=== PATIENT | female | born 1935 | race Caucasian/White ===

== ENCOUNTER → 2016-10-10 | Outpatient (CLI) | payer MEDICARE ==
[~2016-10-10] MED LIST: 'XANAX0.5 MG PO; AMITRIPTYLINE10 MG PO; ATIVAN0.5 MG PO; ATIVAN1 MG PO; CIPROFLOXACIN500 MG PO; DEXILANT60 M1 PO; DOXYCYCLINE MO100 MG PO; LISINOPRIL HCTZ1 TA1 PO; LISINOPRIL/HCTZ1 TA4 PO; LOPRESSOR25 MG PO; LUNESTA2 MG PO; NORTRIPTYLINE10 MG PO; OMEPRAZOLE20 MG PO; PREVACID SOLUTA30 MG PO; PROTONIX IV40 MG IV; PROTONIX TR40 MG PO; PROTONIX40 MG PO; REMERON15 MG PO; TESSALON PERLE200 MG PO; ZESTRIL,PRINIVI10 MG PO; ZITHROMAX Z PA250 MG PO; Zofran4 MG PO; [UNRECOGNIZED DRUG - REMARK] PO
[2016-10-10 09:41] LABS: BASO % 0.3 % (0.0-1.0); EOS # 0.2 10*3/uL (0.0-0.4); EOS % 1.4 % (1.0-4.0); HEMATOCRIT 40.5 % (37.0-47.0); HEMOGLOBIN 13.2 g/dl (12.0-16.0); IG # 0.1 10*3/uL (0.0-0.1); LYMPH # 2.3 10*3/uL (1.3-4.4); LYMPH % 21.5 % (27.0-41.0); MEAN CORPUSCULAR HGB 28.7 pg (27.0-31.0); MEAN CORPUSCULAR HGB CONC 32.6 g/dl (33.0-37.0); MEAN PLATELET VOLUME 8.7 fl (9.6-12.3); MONO # 0.7 10*3/uL (0.1-1.0); NEUT # 7.3 10*3/uL (2.3-7.9); NEUT % 68.9 % (47.0-73.0); PLATELET COUNT AUTOMATED 283 10*3/uL (130-400); RED CELL DISTRI WIDTH 13.5 % (0-14.5); WHITE BLOOD COUNT 10.6 10*3/uL (4.8-10.8)
[2016-10-10 10:15] LABS: ALBUMIN 3.4 gm/dl (3.1-4.5); ALKALINE PHOSPHATASE 75 U/L (45-117); BILIRUBIN, TOTAL 0.4 mg/dl (0.2-1.0); BUN 26 mg/dl (7-24); CARBON DIOXIDE 27 mmol/L (21-32); CHLORIDE 105 mmol/L (98-107); CHOLESTEROL 192 mg/dL (<200); EST GLOM FILT AFRICAN AMERICAN > 60 ml/min; GLUCOSE 87 mg/dL (65-99); HDL CHOLESTEROL 65 mg/dl (40-60); LDL CHOLESTEROL 99 mg/dL (9-159); POTASSIUM 4.2 mmol/L (3.5-5.1); SGOT/AST 13 IU/L (3-35); SGPT/ALT 19 U/L (12-78); SODIUM 140 mmol/L (136-145); TOTAL PROTEIN 7.4 gm/dL (6.4-8.2); TRIGLYCERIDES 140 mg/dl (<150); VLDL CHOLESTEROL 28 mg/dL (6-40)
[2016-10-10 10:20] LABS: THYROID STIM HORMONE (HS) 0.632 uIU/ml (0.358-4.75)
[2016-10-10 10:25] LABS: FOLIC ACID 18.84 ng/mL (>5.38)
[2016-10-11 05:07] LABS: MICRO ALBUMIN/CRE RATIO 5.4 (0.0-30.0)
== END | disposition home or self-care (01) ==
LOC: LAB 09:12
PROVIDERS: Internal Medicine
DX: I10 Essential (primary) hypertension (principal)

== ENCOUNTER → 2016-12-25 | Outpatient (CLI) | payer MEDICARE | END | disposition home or self-care (01) | LOC: US 18:15 | DX: L03.115 Cellulitis of right lower limb (principal) ==

== ENCOUNTER → 2017-03-04 | Outpatient (CLI) | payer MEDICARE | END | disposition home or self-care (01) | LOC: RAD 12:59 | DX: S24.104A Unspecified injury at T11-T12 level of thoracic spinal cord, initial encounter (principal); M47.896 Other spondylosis, lumbar region; M48.06 Spinal stenosis, lumbar region; M51.36 Other intervertebral disc degeneration, lumbar region; X58.XXXA Exposure to other specified factors, initial encounter; Y93.89 Activity, other specified; Y92.89 Other specified places as the place of occurrence of the external cause; Y99.8 Other external cause status ==

== ENCOUNTER 2017-03-09 16:50 | Emergency (ER) | payer MEDICARE ==
[~2017-03-09] VITALS: Ht 162.5 cm; Wt 86.2 kg
[2017-03-09] MEDS ORDERED: LISINOPRIL20 MG PO (17:10)
[2017-03-09 17:19] VITALS: BP 166/72
== END 2017-03-09 17:22 | disposition home or self-care (01) ==
LOC: ED 16:50
DX: I10 Essential (primary) hypertension (principal); R51 Headache; R09.81 Nasal congestion; R05 Cough; K21.9 Gastro-esophageal reflux disease without esophagitis; Z79.899 Other long term (current) drug therapy

== ENCOUNTER → 2017-12-12 | Outpatient (CLI) | payer MEDICARE ==
[~2017-12-12] MED LIST changes: +ATARAX,VISTARIL50 MG PO; +COZAAR100 MG PO; +DOXYCYCLINE100 M3 PO; +GUAIFEN-CODEIN118 ML PO; +K-TAB20 MEQ PO; +KEFLEX500 M1 PO; +LASIX40 MG PO; +LISINOPRIL20 MG PO; +Meclizine25 MG PO; +NORVASC5 MG PO; +OMEPRAZOLE40 MG PO; +SINGULAIR10 M1 PO; +VITAMIN D-32000 UNIT PO
== END | disposition home or self-care (01) ==
LOC: US 16:33
DX: M79.89 Other specified soft tissue disorders (principal)

== ENCOUNTER 2017-12-15 20:00 | Inpatient (IN) | payer MEDICARE ==
[~2017-12-15] VITALS: Ht 152.4 cm; Wt 96.2 kg
[~2017-12-15 20:00] MED LIST changes: -ATARAX,VISTARIL50 MG PO; -COZAAR100 MG PO; -DOXYCYCLINE100 M3 PO; -GUAIFEN-CODEIN118 ML PO; -K-TAB20 MEQ PO; -KEFLEX500 M1 PO; -LASIX40 MG PO; -Meclizine25 MG PO; -NORVASC5 MG PO; -OMEPRAZOLE40 MG PO; -SINGULAIR10 M1 PO; -VITAMIN D-32000 UNIT PO
[2017-12-15 20:06] VITALS: BP 156/117
[2017-12-15 20:09] VITALS: BP 170/90
[2017-12-15 20:49] LABS: BILIRUBIN NEGATIVE (NEGATIVE); BLOOD NEGATIVE (NEGATIVE); CLARITY CLEAR (CLEAR); COLOR YELLOW (YELLOW); GLUCOSE NEGATIVE (NEGATIVE); KETONE NEGATIVE (NEGATIVE); LEUKO ESTERASE NEGATIVE (NEGATIVE); NITRITE NEGATIVE (NEGATIVE); UROBILINOGEN 0.2 E.U./dl (0.2-1.0)
[2017-12-15 21:02] LABS: BACTERIA TRACE; RBC 0-2 rbc/hpf (0-2)
[2017-12-15 21:04] LABS: BASO # 0.1 10*3/uL (0.0-0.1); BASO % 0.5 % (0.0-1.0); EOS # 0.3 10*3/uL (0.0-0.4); EOS % 3.5 % (1.0-4.0); HEMATOCRIT 35.9 % (37.0-47.0); HEMOGLOBIN 11.8 g/dl (12.0-16.0); LYMPH # 2.3 10*3/uL (1.3-4.4); LYMPH % 23.6 % (27.0-41.0); MEAN CELL VOLUME 82.5 fl (81.0-99.0); MEAN CORPUSCULAR HGB 27.1 pg (27.0-31.0); MEAN CORPUSCULAR HGB CONC 32.9 g/dl (33.0-37.0); MEAN PLATELET VOLUME 8.2 fl (9.6-12.3); MONO # 0.9 10*3/uL (0.1-1.0); MONO % 9.1 % (3.0-9.0); NEUT # 6.2 10*3/uL (2.3-7.9); NEUT % 62.9 % (47.0-73.0); PLATELET COUNT AUTOMATED 367 10*3/uL (130-400); RED BLOOD COUNT 4.35 10*6/uL (4.10-5.10); RED CELL DISTRI WIDTH 12.5 % (0-14.5); WHITE BLOOD COUNT 9.8 10*3/uL (4.8-10.8)
[2017-12-15 21:18] LABS: INTERNATIONAL NORM RATIO 0.9 (2.0-3.5)
[2017-12-15 21:20] LABS: ALBUMIN 3.5 gm/dl (3.1-4.5); ALKALINE PHOSPHATASE 85 U/L (45-117); BUN 10 mg/dl (7-24); CHLORIDE 101 mmol/L (98-107); CREATININE 0.96 mg/dL (0.55-1.02); POTASSIUM 3.9 mmol/L (3.5-5.1); SGOT/AST 16 IU/L (3-35); SGPT/ALT 22 U/L (12-78); SODIUM 133 mmol/L (136-145); TOTAL PROTEIN 7.1 gm/dL (6.4-8.2)
[2017-12-15 21:21] LABS: TROPONIN I < 0.015 ng/ml (<0.045)
[2017-12-15 21:43] VITALS: BP 164/72
[2017-12-16 01:20] VITALS: BP 156/66
[2017-12-16] MEDS ORDERED: COZAAR100 MG PO (01:32)
[2017-12-16] MEDS ORDERED: NORVASC5 MG PO (01:33)
[2017-12-16] MEDS ORDERED: ATARAX,VISTARIL50 MG PO (01:33)
[2017-12-16] MEDS ORDERED: OMEPRAZOLE40 MG PO (01:33)
[2017-12-16] MEDS ORDERED: Meclizine25 MG PO (01:34)
[2017-12-16] MEDS ORDERED: SINGULAIR10 M1 PO (01:35)
[2017-12-16 06:01] LABS: BASO # 0.1 10*3/uL (0.0-0.1); BASO % 0.7 % (0.0-1.0); EOS # 0.3 10*3/uL (0.0-0.4); EOS % 3.7 % (1.0-4.0); HEMATOCRIT 33.6 % (37.0-47.0); HEMOGLOBIN 10.8 g/dl (12.0-16.0); LYMPH # 1.9 10*3/uL (1.3-4.4); LYMPH % 22.9 % (27.0-41.0); MEAN CELL VOLUME 83.6 fl (81.0-99.0); MEAN CORPUSCULAR HGB 26.9 pg (27.0-31.0); MEAN CORPUSCULAR HGB CONC 32.1 g/dl (33.0-37.0); MEAN PLATELET VOLUME 8.5 fl (9.6-12.3); MONO # 0.8 10*3/uL (0.1-1.0); MONO % 9.8 % (3.0-9.0); NEUT # 5.1 10*3/uL (2.3-7.9); NEUT % 62.5 % (47.0-73.0); PLATELET COUNT AUTOMATED 344 10*3/uL (130-400); RED BLOOD COUNT 4.02 10*6/uL (4.10-5.10); RED CELL DISTRI WIDTH 12.5 % (0-14.5); WHITE BLOOD COUNT 8.2 10*3/uL (4.8-10.8)
[2017-12-16 06:30] LABS: BUN 7 mg/dl (7-24); CHLORIDE 103 mmol/L (98-107); CHOLESTEROL 131 mg/dL (<200); CREATININE 0.81 mg/dL (0.55-1.02); HDL CHOLESTEROL 33 mg/dl (40-60); LDL CHOLESTEROL 75 mg/dL (9-159); PHOSPHOROUS 3.4 mg/dL (2.5-4.9); POTASSIUM 3.7 mmol/L (3.5-5.1); SODIUM 138 mmol/L (136-145); TRIGLYCERIDES 113 mg/dl (<150); VLDL CHOLESTEROL 23 mg/dL (6-40)
[2017-12-16 06:36] LABS: THYROID STIM HORMONE (HS) 0.392 uIU/ml (0.358-4.75)
[2017-12-16 08:00] VITALS: BP 156/68
[2017-12-16 11:21] LABS: VITAMIN D, 25-HYDROXY 25.8 ng/mL (30-100)
[2017-12-16 12:00] VITALS: BP 149/59
[2017-12-16 16:00] VITALS: BP 156/70
[2017-12-16 20:00] VITALS: BP 131/73
[2017-12-17] VITALS: BP 151/56
[2017-12-17 07:32] LABS: BASO # 0.1 10*3/uL (0.0-0.1); BASO % 0.7 % (0.0-1.0); EOS # 0.4 10*3/uL (0.0-0.4); EOS % 4.9 % (1.0-4.0); HEMATOCRIT 34.1 % (37.0-47.0); HEMOGLOBIN 11.1 g/dl (12.0-16.0); LYMPH # 1.9 10*3/uL (1.3-4.4); LYMPH % 26.6 % (27.0-41.0); MEAN CELL VOLUME 83.2 fl (81.0-99.0); MEAN CORPUSCULAR HGB 27.1 pg (27.0-31.0); MEAN CORPUSCULAR HGB CONC 32.6 g/dl (33.0-37.0); MEAN PLATELET VOLUME 8.5 fl (9.6-12.3); MONO # 0.8 10*3/uL (0.1-1.0); NEUT # 4.1 10*3/uL (2.3-7.9); NEUT % 56.4 % (47.0-73.0); PLATELET COUNT AUTOMATED 332 10*3/uL (130-400); RED CELL DISTRI WIDTH 12.7 % (0-14.5); WHITE BLOOD COUNT 7.2 10*3/uL (4.8-10.8)
[2017-12-17 07:43] LABS: BUN 8 mg/dl (7-24); CHLORIDE 106 mmol/L (98-107); POTASSIUM 3.8 mmol/L (3.5-5.1); SODIUM 141 mmol/L (136-145)
[2017-12-17 07:52] LABS: CREATININE 1.01 mg/dL (0.55-1.02)
[2017-12-17 08:00] VITALS: BP 146/63
[2017-12-17 11:59] VITALS: BP 151/79
[2017-12-17 16:00] VITALS: BP 134/70
[2017-12-17 20:00] VITALS: BP 108/61
[2017-12-18] VITALS: BP 146/51
[2017-12-18 04:00] LABS: CREATININE 1.33 mg/dL (0.55-1.02); POTASSIUM 3.4 mmol/L (3.5-5.1)
[2017-12-18 08:00] VITALS: BP 139/62
[2017-12-18 12:00] VITALS: BP 132/57
[2017-12-18 16:06] VITALS: BP 11/54
[2017-12-18 18:00] VITALS: BP 146/62
[2017-12-18 20:00] VITALS: BP 135/59
[2017-12-19] VITALS: BP 150/54; BP 156/55
[2017-12-19 08:00] VITALS: BP 136/50
[2017-12-19 08:29] LABS: CREATININE 1.24 mg/dL (0.55-1.02)
[2017-12-19] MEDS ORDERED: LASIX40 MG PO (11:55)
[2017-12-19] MEDS ORDERED: KEFLEX500 M1 PO (11:55)
[2017-12-19] MEDS ORDERED: VITAMIN D-32000 UNIT PO (11:55)
[2017-12-19] MEDS ORDERED: K-TAB20 MEQ PO (11:55)
[2017-12-19 12:00] VITALS: BP 140/84
[2017-12-19] MEDS ORDERED: GUAIFEN-CODEIN118 ML PO (12:09)
[2017-12-19] MEDS ORDERED: DOXYCYCLINE100 M3 PO (13:38)
== END 2017-12-19 14:36 | disposition home or self-care (01) | DRG 872 ==
LOC: ED 20:00 → 4E 12-16 00:22 → EDHOLD 12-16 00:22 → 4E 12-16 01:04
PROVIDERS: Emergency Medicine; Family Medicine; Internal Medicine Nephrology
DX: A41.9 Sepsis, unspecified organism (principal); E11.65 Type 2 diabetes mellitus with hyperglycemia; I50.9 Heart failure, unspecified; I11.0 Hypertensive heart disease with heart failure; L03.115 Cellulitis of right lower limb; E87.1 Hypo-osmolality and hyponatremia; L03.116 Cellulitis of left lower limb; E66.01 Morbid (severe) obesity due to excess calories; D64.9 Anemia, unspecified; K21.9 Gastro-esophageal reflux disease without esophagitis; K22.70 Barrett's esophagus without dysplasia; Z96.1 Presence of intraocular lens; M19.90 Unspecified osteoarthritis, unspecified site; R79.82 Elevated C-reactive protein (CRP); E55.9 Vitamin D deficiency, unspecified; Z79.899 Other long term (current) drug therapy; Z87.01 Personal history of pneumonia (recurrent); Z87.440 Personal history of urinary (tract) infections; Z90.49 Acquired absence of other specified parts of digestive tract; Z98.51 Tubal ligation status; Z98.49 Cataract extraction status, unspecified eye; Z87.891 Personal history of nicotine dependence; Z83.3 Family history of diabetes mellitus; Z82.49 Family history of ischemic heart disease and other diseases of the circulatory system; Z80.8 Family history of malignant neoplasm of other organs or systems; Z82.0 Family history of epilepsy and other diseases of the nervous system; Z68.39 Body mass index [BMI] 39.0-39.9, adult

== ENCOUNTER → 2017-12-31 | Outpatient (CLI) | payer MEDICARE ==
[~2017-12-31] MED LIST changes: +ATARAX,VISTARIL50 MG PO; +COZAAR100 MG PO; +DOXYCYCLINE100 M3 PO; +GUAIFEN-CODEIN118 ML PO; +K-TAB20 MEQ PO; +KEFLEX500 M1 PO; +LASIX40 MG PO; +Meclizine25 MG PO; +NORVASC5 MG PO; +OMEPRAZOLE40 MG PO; +SINGULAIR10 M1 PO; +VITAMIN D-32000 UNIT PO
== END | disposition home or self-care (01) ==
LOC: US 12:16
DX: L03.115 Cellulitis of right lower limb (principal); I10 Essential (primary) hypertension; E11.51 Type 2 diabetes mellitus with diabetic peripheral angiopathy without gangrene

== ENCOUNTER → 2018-05-25 | Outpatient (CLI) | payer MEDICARE ==
[~2018-05-25] MED LIST changes: +CARDIZEM120 MG PO
== END | disposition home or self-care (01) ==
LOC: ORTHO 08:19
DX: S42.202D Unspecified fracture of upper end of left humerus, subsequent encounter for fracture with routine healing (principal); X58.XXXD Exposure to other specified factors, subsequent encounter

== ENCOUNTER → 2019-03-16 | Outpatient (CLI) | payer MEDICARE ==
[~2019-03-16] MED LIST changes: +'CLONIDINE0.1 MG PO
== END | disposition home or self-care (01) ==
LOC: US 14:00
DX: L03.115 Cellulitis of right lower limb (principal); R60.0 Localized edema; M79.89 Other specified soft tissue disorders

== ENCOUNTER 2019-03-25 14:38 | Inpatient (IN) | payer MEDICARE ==
[~2019-03-25] VITALS: Ht 162.6 cm; Wt 93.7 kg
--- NOTE | ~2019-03-25 | PR ---
[place], [place] PROGRESS NOTE NAME: DARIA KIM [facility] #: [id number] UNIT #: [id number] ROOM: 528 DOCTOR: BHUPINDER DANIELS MD BIRTHDATE: [birth year] DOS: 03/27/2019 SUBJECTIVE: The patient is resting, does not have any new complaints, states that her wrapping made her legs extremely painful during the night and had to take it off. She does not have any complaints of chest pains or palpitations. OBJECTIVE: VITAL SIGNS: Graphic trend shows a pressure of 145/62, pulse of 64, respirations 20, temperature 98.0. LUNGS: Clear. HEART: Regular. ABDOMEN: Obese, soft, nontender. EXTREMITIES: Without any edema. LABORATORY DATA: Blood culture showing one bottle moderate gram-positive cocci in pairs and clusters. Venous ultrasound of the lower legs shows no evidence of DVT. Arterial Doppler showed no evidence of any stenosis either. ASSESSMENT AND PLAN: 1. Right leg swelling with cellulitis. The patient is placed on IV antibiotics. 2. Bacteremia, awaiting cultures to see whether any adjustments in medicines need to be made. 3. Primary osteoarthritis of knee joints. The patient requested something for pain due to significant discomfort during the night. Tylenol Extra strength is ordered this morning. BHUPINDER DANIELS MD CM:PNTRANS BHUPINDER DANIELS MD 03/27/19 0714 interface
--- NOTE | ~2019-03-25 | PR ---
[place], [place] PROGRESS NOTE NAME: DARIA KIM [facility] #: [id number] UNIT #: [id number] ROOM: 528 DOCTOR: BHPUINDER DANIELS MD BIRTHDATE: [birth year] DOS: 03/28/2019 SUBJECTIVE: The patient is doing well, does not have any new complaints. OBJECTIVE: VITAL SIGNS: Blood pressure is 135/85, pulse of 90, respirations 20, temperature 97.4. LUNGS: Clear. HEART: Regular. ABDOMEN: Obese, soft. EXTREMITIES: Without any edema on the left. Right swelling is decreased. No evidence of cellulitis today. LABORATORY DATA: Blood cultures show no bacterial growth on 03/26/2019, but the blood culture done on 03/25/2019 is growing Staphylococcus epidermidis. White cell count is normal. Urine culture shows no bacterial growth. ASSESSMENT AND PLAN: 1. Cellulitis of the right lower lobe, improving. 2. Staphylococcus epidermidis in one of the blood cultures, already on medications. 3. Right lower leg swelling of the leg. Venous Doppler was negative. BHUPINDER DANIELS MD CM:PNTRANS [id number] BHUPINDER DANIELS MD 03/28/19 1107 interface
--- NOTE | ~2019-03-25 | PR ---
[place], [place] PROGRESS NOTE NAME: JUDYDARIA Shabana UNIT #: [id number] ROOM: 528 DOCTOR: MITCHELL AM MD BIRTHDATE: [birth year] DOS: 03/27/2019 This is an addendum to the progress note done by the nurse practitioner, Pat Bacon. I reviewed the labs and imaging, made the necessary changes in the note. I agree with the assessment and plan. Mitchell Ma MD CM:PNTRANS [phone] MITCHELL MA MD 04/03/19 0155 interface
--- NOTE | ~2019-03-25 | PR ---
[place], [place] PROGRESS NOTE NAME: DARIA KIM [facility] #: [id number] UNIT #: [id number] ROOM: 528 DOCTOR: LIZ CARRANZA,OCTOBER BIRTHDATE: [birth year] DOS: 03/27/2019 CHIEF COMPLAINT: Cellulitis of right lower extremity and bacteremia. SUBJECTIVE: The patient is being followed for right lower extremity cellulitis. She has had an ultrasound of her leg that did not demonstrate any arterial stenosis of her lower extremities as well as ultrasound for DVT of the left lower extremity, which is negative. She denies any pain in the leg. She states she did not have any pain in the leg at the time she was admitted and was more concern for her edema. She has had no fevers or chills. Denies nausea, vomiting or shortness of breath. One of her admitting blood cultures is now positive one bottle for gram-positive cocci. Repeat blood cultures were done on the remained sterile. Again, she has had no fevers. Continues with lower extremity swelling. REVIEW OF SYSTEMS: Otherwise unremarkable, though she does have some itching around her right ankle with swelling. LABORATORY DATA: No new lab work today. Her sed rate was 41 on . PHYSICAL EXAMINATION: VITAL SIGNS: Temperature 98.4, pulse 99, respirations 20, BP 146/64. GENERAL: An 83-year-old female, in no acute distress. HEAD, EYES, EARS, NOSE AND THROAT: Normocephalic, no thrush. LUNGS: Clear to auscultation bilaterally. Respirations even and unlabored. HEART: Regular rhythm with a grade 3/6 murmur noted. ABDOMEN: Soft, nontender. EXTREMITIES: Right lower extremity +2 to 3 edema with mild erythema of the lower leg and foot that improved somewhat with elevation. A +2 dorsalis pedis pulse. Left lower extremity, +1 edema. SKIN: Warm, dry, intact, free of rashes. Does have onychomycosis of pedal digits. ASSESSMENT: Right lower extremity cellulitis and chronic bilateral lower extremity edema. She also has bacteremia. This is likely a contaminant given that it appears to be only one bottle of her admitting set. She was started on vancomycin for the bacteremia. Repeat blood cultures remained sterile. We will stop the vancomycin since none of the other blood cultures have turned positive. Follow up on the blood culture and the repeats. PLAN: Continue Ancef, likely foreign exchange services manager to p.o. antibiotics once the final blood culture is back. I did discuss with her to help with her chronic lower extremity edema, low sodium diet, elevating her legs whenever she is sitting as well as wearing compression. She currently has Tubigrip which is not currently on. OCTOBER TERE [place]ILL [place], [place] PROGRESS NOTE NAME: DARIA KIM UNIT #: [id number] ROOM: 528 DOCTOR: LIZ CARRANZA,OCTOBER BIRTHDATE: [birth year] [facility] [place] CM:PNLUCIAN [id number] [phone] LIZ CARRANZA 03/27/192221 interface
--- NOTE | ~2019-03-25 | WRIGHTHP ---
[place], [place] PATIENT HISTORY AND PHYSICAL EXAM NAME: DARIA KIM [facility] #: [id number] UNIT #: [id number] ROOM: 528 DOCTOR: SUZY DOUGLAS MD BIRTHDATE: [birth year] DOS: CHIEF COMPLAINT: Numbness of the right foot and swelling and cellulitis of the right foot, not responsive to outpatient treatment. HISTORY OF PRESENTING ILLNESS: This is an 83-year-old old patient who came with swelling of the right foot about a week ago and the patient was treated with p.o. clindamycin, but it has not helped. The swelling has got worse and cellulitis has also got worse. The patient's ultrasound for DVT was negative. The patient has now developed numbness of the foot. The patient at this time is being admitted to the hospital for IV antibiotics. We will get Podiatry involved too. We will also check for arterial Doppler to check the blood flow. The patient does not have any history of diabetes. PAST MEDICAL HISTORY: Significant for: 1. Hypertension. 2. Dizziness. 3. Insomnia. 4. GERD. 5. Arthritis of both the knees. 6. Fracture of the left shoulder in April 2018. She had 2 surgeries done, the last surgery was done in June 2018. PAST SURGICAL HISTORY: Cholecystectomy and right shoulder surgery from which she did have some nerve damage also. MEDICATIONS: She takes Zyrtec 10 mg daily, amlodipine 10 mg daily, Cozaar 100 mg daily, Zantac 150 mg b.i.d., hydroxyzine 50 mg once a day, vitamin D3 2000 units once a day, clonidine 0.1 mg twice a day, Klor-Con 20 mEq once a day, Lasix 40 mg daily, omeprazole 40 mg daily. FAMILY HISTORY: Both mother and father have . Father had heart disease. Daughter and son are living. Father at the age of 90 from heart problems. Mother had dementia. SOCIAL HISTORY: Nonsmoker, nonalcoholic, no illicit drug use. DRUG ALLERGIES: LEVAQUIN upsets her stomach and Augmentin upsets her stomach too. REVIEW OF SYSTEMS: Except for a right lower leg cellulitis, the patient's other 10-point review of systems is negative. PHYSICAL EXAMINATION: VITAL SIGNS: Blood pressure is 138/68, heart rate is 100, temperature 97.9, oxygen saturation 99%. HEAD: Normocephalic, atraumatic. EYES: Pupils equal, round, react to light. Extraocular movements are intact. [place], [place] PATIENT HISTORY AND PHYSICAL EXAM [facility] [id number] UNIT #: [id number] ROOM: 528 DOCTOR: SUZY DOUGLAS MD BIRTHDATE: [birth year] EAR, NOSE, AND THROAT: No discharge noted. NECK: No JVD, no lymphadenopathy, no thyromegaly. CHEST: Clinically clear to auscultation bilaterally. HEART: S1 and S2, regular rate and rhythm. No murmur, gallop, or rub. ABDOMEN: Soft, nontender. EXTREMITIES: There is a swelling of the right leg and it starts below the knee. There is induration, redness, and also numbness in the right leg. ASSESSMENT: At this time: 1. Cellulitis of the right foot. 2. Hypertension. 3. Primary insomnia. 4. History of benign paroxysmal positional vertigo for which she takes meclizine off and on. 5. Gastroesophageal reflux disease. 6. Vitamin D deficiency. 7. Nausea. PLAN OF CARE: 1. We will admit the patient to the hospital, start vancomycin and Zosyn. 2. Arterial Doppler of the lower extremities. 3. We will consult Podiatry for possible Unna boot placement. 4. Continue all the home medications. 5. Lovenox 40 mg subcutaneous daily for DVT prophylaxis. 6. We will follow the patient in the morning. Dr. Symone Mccoy will be covering on the weekend. SUZY DOUGLAS MD CM:HISPHYS:PATIENT HISTORY AND PHYSICAL EXAMINATION [id number] OUMUO DOUGLAS MD 03/30/19 1148 HOLGER [email or web address]
--- NOTE | ~2019-03-25 | CON ---
[place], [place] REPORT OF CONSULTATION NAME: [facility]IA [facility]IM [facility] #: [id number] UNIT #: [id number] ROOM: 528 DOCTOR: MITCHELL BLACK MD BIRTHDATE: [birth year] DOS: 03/25/2019 REASON FOR CONSULTATION: Right foot cellulitis, failing outpatient management associated with tingling, numbness. CHIEF COMPLAINT: Right foot cellulitis, failing outpatient management associated with tingling, numbness. HISTORY OF PRESENT ILLNESS: This is an 83-year-old female who is presenting as a direct admit from outpatient because of complaint of right foot numbness, swelling. According to the patient, she got 10 days of clindamycin for her right foot cellulitis that she completed just a week ago and after completion of antibiotics, she noticed some more swelling and redness near her ankle and presented to outpatient, after which she was made a direct admission. She denies having any fever, chills, no leukocytosis. ESR has been ordered, currently in process as well as CRP. Blood cultures have been ordered and ID has been consulted for further management. She has not received any IV antibiotics so far. PAST MEDICAL HISTORY: Significant for arthritis, CHF, diabetes type 2, history of Henning's esophagus, hypertension, vitamin D deficiency. PAST SURGICAL HISTORY: Cataract extraction, cholecystectomy, colonoscopy, EGD, repair of right rotator cuff tear, tubal ligation, vein stripping of right lower extremity. PAST SOCIAL HISTORY: Former smoker, stopped smoking 30 years ago, before that, she used to smoke 3-4 packs daily for 20 years. No illicit drug use, nonalcoholic. FAMILY HISTORY: Not significant at this time. ALLERGIES: No known drug allergies. HOME MEDICATIONS: Reviewed. REVIEW OF SYSTEMS: A 12-point review of systems has been done. Pertinent negative positive included in HPI, rest are noncontributory. PHYSICAL EXAMINATION: VITAL SIGNS: Stable, noted. GENERAL: The patient is alert, oriented x 3, not in acute distress. HEENT: Atraumatic, normocephalic. PERRLA, EOMI. RESPIRATORY: Air entry bilaterally equal. No wheeze or crackles. CARDIOVASCULAR: S1, S2 normal. No murmur, rubs or gallop. ABDOMEN: Soft, nontender, nondistended. Bowel sounds present in all 4 quadrants. EXTREMITIES: Right lower extremity swelling noticed over the forefoot ankle to mid tibia. There is minimal redness on deep palpation. There is mild tenderness only over the ankle region. Good range of motion over the ankle [place], [place] REPORT OF CONSULTATION NAME: D[facility]IA KIM [facility] #: [id number] UNIT #: [id number] ROOM: 528 DOCTOR: MITCHELL BLACK MD BIRTHDATE: [birth year] joint. Good peripheral pulses felt over the foot. Sensation slightly decreased on the dorsal aspect of the right foot compared to the plantar aspect. No open ulcerations. Nails intact. NEUROLOGIC: Grossly intact. LABORATORIES AND IMAGING: Noted. ASSESSMENT: 1. Right lower leg nonpurulent cellulitis, mild. 2. Recurrent cellulitis of right lower extremity. 3. History of vein stripping over the right lower extremity. Recent ultrasound done outpatient was negative for deep venous thrombosis. PLAN: At this time, there is not extensive cellulitis at this time and there is more of a dependent erythema. Keep her legs elevated. Keep her on cefazolin 2 grams. Discontinue vancomycin and Zosyn. Follow the ESR, CRP. Can ask Podiatry to evaluate the patient because of her numbness and tingling. At this time, her peripheral pulsations are good. She already had ultrasound of the lower extremity done, negative for DVT. I am not concerned about gout also at this time. Thank you for your consult. Please call for any questions. Mitchell Black MD CM:CONSTR:REPORT OF CONSULTATION 1757 03/26/19 0230 interface
[2019-03-25 15:00] VITALS: BP 145/69
--- NOTE | 2019-03-25 15:43 | NUR ---
A 83, admitted to , under the services of SUZY Sands MD with a diagnosis of CELLULITIS. Chief complaint is EDEMA AND REDNESS TO RIGHT FOOT. Patient arrived via from [place]. Monitor applied. Initial assessment completed. Vital signs taken and recorded. SUZY SANDS MD notified of admission to the unit. Orders received. See assessment for past medical history, medications and allergies. Patient and/or family oriented to unit. [facility] ICCU visitation policy reviewed. Clothing/patient valuable form completed. LONI ANAND
[2019-03-25] MEDS ORDERED: AMLODIPINE BESY10 MG PO (16:30)
[2019-03-25] MEDS ORDERED: CETIRIZINE10 MG PO (16:31)
[2019-03-25] MEDS ORDERED: NEURONTIN100 MG PO (16:32)
[2019-03-25] MEDS ORDERED: ZOFRAN4 MG PO (16:33)
[2019-03-25] MEDS ORDERED: HYDROXYZINE HCL50 MG PO (16:38)
[2019-03-25] MEDS ORDERED: NEXIUM40 MG PO (16:39)
[2019-03-25 17:47] LABS: BASO % 0.5 % (0.0-1.0); EOS # 0.4 10*3/uL (0.0-0.4); EOS % 4.3 % (1.0-4.0); HEMATOCRIT 36.1 % (37.0-47.0); HEMOGLOBIN 11.3 g/dl (12.0-16.0); LYMPH # 2.1 10*3/uL (1.3-4.4); MEAN CELL VOLUME 84.7 fl (81.0-99.0); MEAN CORPUSCULAR HGB 26.5 pg (27.0-31.0); MEAN CORPUSCULAR HGB CONC 31.3 g/dl (33.0-37.0); MEAN PLATELET VOLUME 9.2 fl (9.6-12.3); MONO # 0.6 10*3/uL (0.1-1.0); NEUT # 5.4 10*3/uL (2.3-7.9); NEUT % 62.8 % (47.0-73.0); PLATELET COUNT AUTOMATED 325 10*3/uL (130-400); RED BLOOD COUNT 4.26 10*6/uL (4.10-5.10); RED CELL DISTRI WIDTH 14.4 % (0-14.5); WHITE BLOOD COUNT 8.5 10*3/uL (4.8-10.8)
[2019-03-25 18:04] LABS: ALBUMIN 3.4 gm/dl (3.1-4.5); ALKALINE PHOSPHATASE 81 U/L (45-117); BUN 20 mg/dl (7-24); CHLORIDE 107 mmol/L (98-107); CREATININE 1.07 mg/dL (0.55-1.02); POTASSIUM 3.9 mmol/L (3.5-5.1); SGOT/AST 15 IU/L (3-35); SODIUM 138 mmol/L (136-145)
[2019-03-25 18:06] LABS: SGPT/ALT 19 U/L (12-78)
--- NOTE | 2019-03-25 18:41 | NUR ---
RESIDENT COVERIMG FOR DR. HWANG NOTIFIED OF NEW CONSULT AND WILL SEE THIS PATIENT IN THE MORNING
[2019-03-25 19:56] LABS: BILIRUBIN NEGATIVE (NEGATIVE); BLOOD NEGATIVE (NEGATIVE); CLARITY CLEAR (CLEAR); COLOR YELLOW (YELLOW); GLUCOSE NEGATIVE (NEGATIVE); KETONE NEGATIVE (NEGATIVE); LEUKO ESTERASE 1+ (NEGATIVE); NITRITE NEGATIVE (NEGATIVE); SPECIFIC GRAVITY <= 1.005 (1.005-1.030); UROBILINOGEN 0.2 E.U./dl (0.2-1.0)
[2019-03-25 20:00] VITALS: BP 112/41
[2019-03-25 20:17] LABS: BACTERIA TRACE
--- NOTE | 2019-03-25 22:00 | NUR ---
VISTARIL GIVEN PER ORDER FOR PER PT. REQUEST TO HELP HER SLEEP. PT. ALSO STATED SHE DOES NOT TAKE NEURONTIN IT "MAKES HER OF BAD DREAMS" AND SHE TAKES HER CATAPRESS BID. CHANGED MED RECONCILLED HOME MEDS.
[2019-03-26] VITALS: BP 137/47
--- NOTE | 2019-03-26 03:16 | NUR ---
24 HR chart check completed.
[2019-03-26 08:00] VITALS: BP 144/54
--- NOTE | 2019-03-26 08:28 | NUR ---
TYLENOL GIVEN FOR COMPLAINTS OF RIGHT LEG PAIN
--- NOTE | 2019-03-26 11:23 | NUR ---
After School Caregiver in to talk to patient. Patient states lives at home with her . There are 2 steps in the home. Physician: Dr. Yung Burrell [facility]acy: [facility]: has had in the past but not currently and doesn't remember the name of the company Patient's level of ADLs: MINIMAL ASSIST Patient has working utilities: yes DME: [facility] Follow-up physician's appointment after d/c: she prefers to make her own follow up appt after discharge Does patient want to access PORTAL?: no Discharge plan discussed with patient. She lives at home with her . She is independent in her ADLs and ambulation. Discussed home health care services and she denies any home needs at this time. When medically stable she will be discharged to home. Her will transport on discharge. SHAQ JIANG
[2019-03-26 12:00] VITALS: BP 106/47
[2019-03-26 16:00] VITALS: BP 130/60
--- NOTE | 2019-03-26 18:14 | NUR ---
THE LAB NOTIFIED ME THAT THIS PATIENT HAS POSITIVE BLOOD CULTURES THAT SHOW MODERATE GRAM POSITIVE COCCI IN PAIRS AND CLUDTERS. DR CRANE NOTIFIED AND SHE ORDERED TO CONSULT INFECTIOUS DISEASE AND REDRAW THE CULTURES. DR DELAROSA NOTIFIED OF THE CONSULT.
[2019-03-26 20:00] VITALS: BP 133/51
--- NOTE | 2019-03-26 21:49 | NUR ---
TYLENOL GIVEN PER ORDER FOR BACK PAIN RATED "5"SEE SEP. VISTARIL GIVEN PER ORDER PER PT. REQUEST TO HELP HER GO TO SLEEP. SEE SEP.
--- NOTE | 2019-03-26 22:00 | NUR ---
CHINA WRAPS COMPRESSION FOOT TO KNEE DONE PER ORDER PT. WANTED TO TAKE A BREAK FROM SCD'S AT THIS TIME AND SIT IN CHAIR.
--- NOTE | 2019-03-26 22:15 | NUR ---
IV HEPLOCK LEAKING AT SITE ON LEFT HAND. Hep Lock discontinued. Site symptomatic. Pressure applied. Sterile dressing applied. IV started left forearm with #22 angiocath after 1st attempts. The IV site was prepped with Chloraprep. Heparin lock attached. Sterile dressing applied. Patient tolerated precedure well. Procedure performed according to [facility] policy & procedure. LONI NAYLOR
--- NOTE | 2019-03-26 22:49 | NUR ---
TYLENOL EFFECTIVE FOR BACK PAIN PER PT. PT. STILL AWAKE SO VISTARIL NOT EFFECTIVE AT THIS TIME.
[2019-03-27] VITALS: BP 145/62
[2019-03-27 08:00] VITALS: BP 151/60
--- NOTE | 2019-03-27 08:30 | NUR ---
PATIENT UP IN CHAIR. NO DISTRESS NOTED. PT STATES SWELLING HAS GONE DOWN TO RIGHT FOOT. ENCOURAGED PATIENT TO ELEVATE LEGS/WEAR TEDS OR CHINA WRAPS. PT REFUSED AT THIS TIME. WILL CONTINUE TO MONITOR. NO VOICED COMPLAINTS.
--- NOTE | 2019-03-27 10:00 | NUR ---
PT REFUSED LOVENOX DESPITE NURSING EDUCATION.
[2019-03-27 12:00] VITALS: BP 133/64
[2019-03-27 16:00] VITALS: BP 131/52
[2019-03-27 20:00] VITALS: BP 146/64
--- NOTE | 2019-03-27 21:16 | NUR ---
DR DANIELS CALLED WITH PATIENT'S C/O RIGHT LOWER LEG. NEW ORDER RECEIVED SEE EMAR.
[2019-03-28] VITALS: BP 135/85
[2019-03-28 06:39] LABS: CREATININE 1.07 mg/dL (0.55-1.02)
[2019-03-28 06:40] LABS: BASO # 0.1 10*3/uL (0.0-0.1); BASO % 0.8 % (0.0-1.0); EOS # 0.4 10*3/uL (0.0-0.4); EOS % 7.2 % (1.0-4.0); HEMATOCRIT 35.1 % (37.0-47.0); HEMOGLOBIN 11.1 g/dl (12.0-16.0); LYMPH # 1.9 10*3/uL (1.3-4.4); LYMPH % 31.9 % (27.0-41.0); MEAN CELL VOLUME 83.4 fl (81.0-99.0); MEAN CORPUSCULAR HGB 26.4 pg (27.0-31.0); MEAN CORPUSCULAR HGB CONC 31.6 g/dl (33.0-37.0); MEAN PLATELET VOLUME 9.4 fl (9.6-12.3); MONO # 0.7 10*3/uL (0.1-1.0); MONO % 10.7 % (3.0-9.0); NEUT % 49.2 % (47.0-73.0); PLATELET COUNT AUTOMATED 293 10*3/uL (130-400); RED BLOOD COUNT 4.21 10*6/uL (4.10-5.10); RED CELL DISTRI WIDTH 14.5 % (0-14.5); WHITE BLOOD COUNT 6.1 10*3/uL (4.8-10.8)
[2019-03-28 08:00] VITALS: BP 155/52
--- NOTE | 2019-03-28 09:30 | NUR ---
IN TO SEE PATIENT.
--- NOTE | 2019-03-28 12:13 | NUR ---
NOTIFIED REGARDING LOSS OF IV ACCESS. OKAY TO LEAVE IV OUT. NEW ORDERS RECEIVED.
[2019-03-28 16:00] VITALS: BP 123/54; BP 143/62
[2019-03-28 20:00] VITALS: BP 137/56
--- NOTE | 2019-03-28 20:11 | NUR ---
24 HR chart check completed.
--- NOTE | 2019-03-28 22:18 | NUR ---
PATIENT REQUESTING MEDICATION FOR BACK PAIN AND FOR SLEEP. TYLENOL AND VISTARIL ADMINISTERED PRESCRIBED. WILL MONITOR FOR EFFECTIVENESS.
--- NOTE | 2019-03-28 23:18 | NUR ---
PATIENT SITTING IN CHAIR AT THIS TIME. STATES THATHER STOMACH IS UPSET FROM THE DOZYCYCLINE BUT DOES NOT WANT ANY MEDICATION FOR MAUSEA. WILL MONITOR.
[2019-03-29] VITALS: BP 133/58
--- NOTE | 2019-03-29 04:23 | NUR ---
PATIENT RESTING WITH EYES CLOSED. RESPIRATIONS EASY AND UNLABORED. CALL LEGGETT WITHIN REACH. WILL MONITOR.
[2019-03-29 08:00] VITALS: BP 138/50
--- NOTE | 2019-03-29 10:30 | NUR ---
Company Doctor in to see patient. No new needs or request at this time. She denies any home needs. When medically stable she will be discharged to home.
--- NOTE | 2019-03-29 10:56 | NUR ---
MEDICATED WITH 2 TYLENOL FOR COMPLAINTS OF PAIN IN BACK. RATES PAIN A 3 ON A PAIN SCALE OF 1-10
--- NOTE | 2019-03-29 11:05 | NUR ---
PHYSICAL THERAPY Physical therapy evaluation only completed. Full details and evaluation to follow. Low complexity skilled PT evaluation performed (84728). Patient is independent in room. No PT needs at this time. Return to home upon discharge. Thank you, Erlinda Donaldson, SPT Brenda Cruz,PT,DPT
[2019-03-29 12:00] VITALS: BP 124/56
[2019-03-29] MEDS ORDERED: DOXYCYCLINE100 M3 PO (15:04)
--- NOTE | 2019-03-29 15:58 | NUR ---
PATIENT REFUSED DISCHARGE WOUND PHOTOS.
--- NOTE | 2019-03-29 15:58 | NUR ---
Discharge instructions reviewed with patient/family. Patient receptive and verbalizes understanding. Follow-up care arranged. Written instructions given to patient/family. LAKEISHA WILLS
== END 2019-03-29 15:45 | disposition home or self-care (01) | DRG 603 ==
LOC: 5E 14:38
PROVIDERS: Student in an Organized Health Care Education/Training Program; ADMIT Internal Medicine
DX: L03.115 Cellulitis of right lower limb (principal); I13.0 Hypertensive heart and chronic kidney disease with heart failure and stage 1 through stage 4 chronic kidney disease, or unspecified chronic kidney disease; E44.0 Moderate protein-calorie malnutrition; K21.9 Gastro-esophageal reflux disease without esophagitis; M19.90 Unspecified osteoarthritis, unspecified site; E55.9 Vitamin D deficiency, unspecified; I50.9 Heart failure, unspecified; E11.22 Type 2 diabetes mellitus with diabetic chronic kidney disease; N18.3 Chronic kidney disease, stage 3 (moderate); E66.09 Other obesity due to excess calories; D64.9 Anemia, unspecified; G47.00 Insomnia, unspecified; M17.0 Bilateral primary osteoarthritis of knee; Z87.81 Personal history of (healed) traumatic fracture; Z90.49 Acquired absence of other specified parts of digestive tract; Z68.35 Body mass index [BMI] 35.0-35.9, adult; Z82.49 Family history of ischemic heart disease and other diseases of the circulatory system; Z81.8 Family history of other mental and behavioral disorders; Z88.1 Allergy status to other antibiotic agents; Z79.84 Long term (current) use of oral hypoglycemic drugs

== ENCOUNTER 2019-06-01 14:36 | Emergency (ER) | payer MEDICARE ==
[~2019-06-01] VITALS: Ht 162.5 cm; Wt 86.2 kg
--- NOTE | ~2019-06-01 | EKG ---
[place], [place] ELECTROCARDIOGRAM REPORT NAME: DARIA KIM UNIT #: [id number] ROOM: DOCTOR: EPIPHANY DRAFT REPORT BIRTHDATE: [birth year] [facility] Test Date: 2019-06-01 Test Time: 14:36:32 Pat Name: DARIAAMBROSIO RUBYN Department: Room: Gender: F [employer]fu[employer] Production Manager: : 1935 Requested By: FELICIA SHEPHERD Order Number: [id number] Reading MD: Gerri Dubois MD Measurements Intervals [place] Rate: 82 P: 49 IL: 217 QRS: -35 QRSD: 94 T: 31 QT: 410 QTc: 479 Interpretive Statements Sinus rhythm Borderline prolonged IL interval RSR' in V1 or V2, right VCD or RVH Left ventricular hypertrophy Anterior Q waves, possibly due to LVH Compared to ECG 12/03/2018 16:44:05 Right ventricular hypertrophy now present RSR' in V1 or V2 now present Left ventricular hypertrophy now present Q waves now present Myocardial infarct finding no longer present Electronically Signed On 06-03-2019 14:26:50 PST by Gerri Dubois MD CM:EKGRPT:ELECTROCARDIOGRAM REPORT [id number] FELICIA HADLEY DRAFT REPORT FELICIA SHEPHERD DO
[~2019-06-01 14:36] MED LIST changes: +AMLODIPINE BESY10 MG PO; +CETIRIZINE10 MG PO; +HYDROXYZINE HCL50 MG PO; +NEURONTIN100 MG PO; +NEXIUM40 MG PO; +ZOFRAN4 MG PO
[2019-06-01 15:02] LABS: BASO % 0.1 % (0.0-1.0); HEMATOCRIT 34.6 % (37.0-47.0); HEMOGLOBIN 10.8 g/dl (12.0-16.0); LYMPH # 1.5 10*3/uL (1.3-4.4); LYMPH % 10.3 % (27.0-41.0); MEAN CELL VOLUME 82.4 fl (81.0-99.0); MEAN CORPUSCULAR HGB 25.7 pg (27.0-31.0); MEAN CORPUSCULAR HGB CONC 31.2 g/dl (33.0-37.0); MEAN PLATELET VOLUME 9.3 fl (9.6-12.3); MONO # 0.6 10*3/uL (0.1-1.0); MONO % 4.5 % (3.0-9.0); NEUT % 84.7 % (47.0-73.0); PLATELET COUNT AUTOMATED 328 10*3/uL (130-400); RED CELL DISTRI WIDTH 13.2 % (0-14.5); WHITE BLOOD COUNT 14.2 10*3/uL (4.8-10.8)
[2019-06-01 15:10] LABS: ACT PARTIAL THROMBO TIME 28.4 SECONDS (20.0-32.1)
[2019-06-01 15:17] LABS: ALBUMIN 3.4 gm/dl (3.1-4.5); ALKALINE PHOSPHATASE 73 U/L (45-117); BUN 28 mg/dl (7-24); CHLORIDE 108 mmol/L (98-107); CREATININE 1.51 mg/dL (0.55-1.02); POTASSIUM 3.8 mmol/L (3.5-5.1); SGOT/AST 15 IU/L (3-35); SGPT/ALT 17 U/L (12-78); SODIUM 139 mmol/L (136-145); TOTAL PROTEIN 7.1 gm/dL (6.4-8.2)
[2019-06-01 15:30] LABS: TROPONIN I < 0.015 ng/ml (<0.045)
[2019-06-01 16:15] VITALS: BP 149/52
[2019-06-01] MEDS ORDERED: PREDNISONE20 M1 PO (16:57)
== END 2019-06-01 17:07 | disposition home or self-care (01) ==
LOC: ED 14:36
PROVIDERS: Emergency Medicine
DX: R51 Headache (principal); R42 Dizziness and giddiness; I49.8 Other specified cardiac arrhythmias; E11.22 Type 2 diabetes mellitus with diabetic chronic kidney disease; I13.0 Hypertensive heart and chronic kidney disease with heart failure and stage 1 through stage 4 chronic kidney disease, or unspecified chronic kidney disease; N18.3 Chronic kidney disease, stage 3 (moderate); I50.9 Heart failure, unspecified; K21.9 Gastro-esophageal reflux disease without esophagitis; E66.9 Obesity, unspecified; Z79.899 Other long term (current) drug therapy; Z79.2 Long term (current) use of antibiotics; Z68.30 Body mass index [BMI] 30.0-30.9, adult; Z87.891 Personal history of nicotine dependence; Z90.49 Acquired absence of other specified parts of digestive tract

== ENCOUNTER → 2019-06-14 | Outpatient (CLI) | payer MEDICARE ==
[~2019-06-14] MED LIST changes: +PREDNISONE20 M1 PO
[2019-06-14 13:50] LABS: CREATININE 1.38 mg/dL (0.55-1.02); POTASSIUM 3.6 mmol/L (3.5-5.1)
== END | disposition home or self-care (01) ==
LOC: LAB 11:12 → US 11:30
PROVIDERS: Nurse Practitioner Family
DX: I35.1 Nonrheumatic aortic (valve) insufficiency (principal); R94.31 Abnormal electrocardiogram [ECG] [EKG]; R01.1 Cardiac murmur, unspecified; R42 Dizziness and giddiness; R06.02 Shortness of breath; I77.1 Stricture of artery; R94.5 Abnormal results of liver function studies

== ENCOUNTER → 2019-07-29 | Outpatient (CLI) | payer MEDICARE | END | disposition home or self-care (01) | LOC: US 13:30 | DX: E04.9 Nontoxic goiter, unspecified (principal); I10 Essential (primary) hypertension; I48.91 Unspecified atrial fibrillation ==

== ENCOUNTER 2019-08-25 14:30 | Inpatient (IN) | payer MEDICARE ==
[~2019-08-25] VITALS: Ht 162.6 cm; Wt 88.0 kg
[2019-08-25 14:36] VITALS: BP 184/88
[2019-08-25 15:50] LABS: BASO # 0.1 10*3/uL (0.0-0.1); BASO % 0.6 % (0.0-1.0); EOS # 0.3 10*3/uL (0.0-0.4); HEMATOCRIT 35.7 % (37.0-47.0); HEMOGLOBIN 11.1 g/dl (12.0-16.0); LYMPH # 2.3 10*3/uL (1.3-4.4); LYMPH % 27.4 % (27.0-41.0); MEAN CELL VOLUME 83.2 fl (81.0-99.0); MEAN CORPUSCULAR HGB 25.9 pg (27.0-31.0); MEAN CORPUSCULAR HGB CONC 31.1 g/dl (33.0-37.0); MEAN PLATELET VOLUME 9.2 fl (9.6-12.3); MONO # 0.6 10*3/uL (0.1-1.0); MONO % 7.2 % (3.0-9.0); NEUT % 60.3 % (47.0-73.0); PLATELET COUNT AUTOMATED 331 10*3/uL (130-400); RED BLOOD COUNT 4.29 10*6/uL (4.10-5.10); RED CELL DISTRI WIDTH 14.6 % (0-14.5); WHITE BLOOD COUNT 8.3 10*3/uL (4.8-10.8)
[2019-08-25 16:01] LABS: ACT PARTIAL THROMBO TIME 27.1 SECONDS (20.0-32.1)
[2019-08-25 16:05] LABS: BILIRUBIN NEGATIVE (NEGATIVE); BLOOD NEGATIVE (NEGATIVE); CLARITY CLEAR (CLEAR); COLOR YELLOW (YELLOW); GLUCOSE NEGATIVE (NEGATIVE); KETONE NEGATIVE (NEGATIVE); LEUKO ESTERASE NEGATIVE (NEGATIVE); NITRITE NEGATIVE (NEGATIVE); PH 7.5 (5.0-9.0); UROBILINOGEN 0.2 E.U./dl (0.2-1.0)
[2019-08-25 16:07] LABS: BACTERIA 1+; EPITHELIAL CELLS 0-2; RBC 0-2 rbc/hpf (0-2); WBC 0-2 wbc/hpf (0-5)
[2019-08-25 16:08] LABS: CREATININE 1.37 mg/dL (0.55-1.02); POTASSIUM 3.9 mmol/L (3.5-5.1); TOTAL PROTEIN 6.6 gm/dL (6.4-8.2)
[2019-08-25 16:12] LABS: TROPONIN I 0.065 ng/ml (<0.045)
[2019-08-25 17:00] VITALS: BP 181/61
--- NOTE | 2019-08-25 17:00 | NUR ---
A 83, admitted to , under the services of LEI Steiner DO with a diagnosis of LLL PNEUMONIA. Chief complaint is SHORTNESS OF BREATH. Patient arrived via wheel chair from ER. Monitor applied. Initial assessment completed. Vital signs taken and recorded. LEI STEINER DO notified of admission to the unit. Orders received. See assessment for past medical history, medications and allergies. Patient and/or family oriented to unit. [facility] ICCU visitation policy reviewed. Clothing/patient valuable form completed. VICENTE COBB
[2019-08-25] MEDS ORDERED: LASIX40 MG PO (18:33)
[2019-08-25] MEDS ORDERED: PRILOSEC20 M1 PO (18:35)
[2019-08-25] MEDS ORDERED: PEPCID20 MG PO (18:36)
[2019-08-25] MEDS ORDERED: K-LOR 20MEQ20 ME1 PO (18:38)
[2019-08-25] MEDS ORDERED: COREG3.125 MG PO (18:40)
[2019-08-25] MEDS ORDERED: VENT7GM INH (18:41)
--- NOTE | 2019-08-25 18:54 | NUR ---
ELEVATED TROPONIN CALLED TO DR. HDEZ
--- NOTE | 2019-08-25 18:59 | NUR ---
DR. BAPTISTE NOTIFIED OF CONSULT.
--- NOTE | 2019-08-25 19:25 | NUR ---
Called consult to . Said he will see the pt tomorrow.
[2019-08-25 20:00] VITALS: BP 164/73
--- NOTE | 2019-08-25 22:06 | NUR ---
AND AWARE OF TROP 0.252 CALLED FROM LAB. NO NEW ORDERS. SAID HE WOULD SEE PT TOMORROW.
--- NOTE | 2019-08-25 23:08 | NUR ---
24hr chart check completed.
--- NOTE | 2019-08-25 23:47 | NUR ---
NOTIFIED BP 177/70 AND C/O BILAT KNEE PAIN DESPITE TYLENOL, ICE PACKS, AND K-PAD. ORDER FOR ONE TIME NORCO REC'D AND APRESOLINE. SEE SEP.
[2019-08-26] VITALS (7 sets, daily range): BP systolic 145–178; BP diastolic 44–77
--- NOTE | 2019-08-26 00:03 | NUR ---
NORCO AND VISTARIL GIVEN FOR C/O BILAT KNEE PAIN AND INSOMNIA. WILL MONITOR EFFECTIVENESS. CALL LIGHT IN REACH.
--- NOTE | 2019-08-26 01:03 | NUR ---
NOTIFIED OF TROP 0.285. ORDERED TO CALL . CALLED , NO ANSWER.
--- NOTE | 2019-08-26 01:25 | NUR ---
CALLED BACK. MADE AWARE OF TROP 0.285. DOES NOT WANT CALLED FOR TROPONINS TONIGHT. NO NEW ORDERS REC'D. NOTIFIED OF SHEREEN 168/44 FOLLOWING APRESOLINE. SAID TO GIVE 2MG MORPHINE IF PT ALLOWS. PT THINKING ABOUT IT. WILL RE-CHECK AGAIN SOON.
--- NOTE | 2019-08-26 01:44 | NUR ---
2L NC IN PLACE FOR COMFORT. PT STATES SHE IS MORE RELAXED AT PRESENT TIME. HR NSR IN 70s PER CM. BP 158/56. VOICES NO COMPLAINTS. STATES K-PAD IS HELPING WITH KNEE PAIN AND NORCO/VISTARIL ARE EFFECTIVE FOR EARLIER COMPLAINTS. CALL LIGHT IN REACH. RECLINED IN CHAIR.
--- NOTE | 2019-08-26 02:17 | NUR ---
SLEEPING, NO SXS OF DISTRESS. CALL LIGHT IN REACH. RESPER EASY, REGULAR ON 2LNC.
[2019-08-26 06:33] LABS: BASO # 0.1 10*3/uL (0.0-0.1); BASO % 0.8 % (0.0-1.0); EOS # 0.4 10*3/uL (0.0-0.4); EOS % 5.4 % (1.0-4.0); HEMATOCRIT 34.7 % (37.0-47.0); HEMOGLOBIN 10.8 g/dl (12.0-16.0); LYMPH # 2.3 10*3/uL (1.3-4.4); LYMPH % 31.3 % (27.0-41.0); MEAN CELL VOLUME 82.4 fl (81.0-99.0); MEAN CORPUSCULAR HGB 25.7 pg (27.0-31.0); MEAN CORPUSCULAR HGB CONC 31.1 g/dl (33.0-37.0); MEAN PLATELET VOLUME 9.3 fl (9.6-12.3); MONO # 0.8 10*3/uL (0.1-1.0); MONO % 10.4 % (3.0-9.0); NEUT # 3.8 10*3/uL (2.3-7.9); NEUT % 51.8 % (47.0-73.0); PLATELET COUNT AUTOMATED 328 10*3/uL (130-400); RED BLOOD COUNT 4.21 10*6/uL (4.10-5.10); RED CELL DISTRI WIDTH 14.6 % (0-14.5); WHITE BLOOD COUNT 7.3 10*3/uL (4.8-10.8)
[2019-08-26 06:49] LABS: CREATININE 1.23 mg/dL (0.55-1.02); POTASSIUM 3.5 mmol/L (3.5-5.1)
--- NOTE | 2019-08-26 06:52 | NUR ---
IN TO SEE PT.
--- NOTE | 2019-08-26 11:47 | NUR ---
Cigar Head Puncher in to talk to patient. Patient states lives at HOME with . There are NO steps in the home. Physician: Aurora MACIAS [facility]: [facility] Home health services: NONE Patient's level of ADLs: INDEPENDENT Patient has working utilities: YES DME: ANNA Follow-up physician's appointment after d/c: WILL BE MADE BY HOSPITALIST NURSE DIRECTOR ON DISCHARGE Does patient want to access PORTAL?: NO Discharge plan PT LIVES AT HOME WITH HER AND IS INDEPENDENT IN HER CARE. TALKED WITH PT ABOUT HOME HEALTH BUT SHE STATES SHE HAD THEM BEFORE WHEN SHE BROKE HER SHOULDER AND THEY DIDN'T DO MUCH. DOES NOT WANT THEM AGAIN. PT STATES SHE WILL RETURN HOME WITH HER AND HE CAN HELP HER, ALSO HAS CHILDREN AND GRANDCHILDREN WHO HELP HER. WILL CONTINUE TO FOLLOW. STATES SHE WILL HAVE A RIDE HOME.. DARIA MCBRIDE
--- NOTE | 2019-08-26 11:53 | NUR ---
pt medicated with prn zofran for c/o nausea, will monitor.
--- NOTE | 2019-08-26 19:00 | NUR ---
ASSUMED CARE FOR THIS PT AT THIS TIME. PT AWAKE SITTING IN RECLINER CHAIR. GAVE PT SPUTUM CUP AND PT TEACHING GIVEN ON SPITTING MUCUS WHEN SHE COUGHS INTO THE CUP FOR SAMPLE. PT ACKNOWLEDGES. CALL LIGHT IN REACH.
--- NOTE | 2019-08-26 20:00 | NUR ---
PT C/O NAUSEA AND CONSTIPATION. MEDICATED W/ZOFRAN IVP AND DULCOLAX PO. PT SITTING IN RECLINER CHAIR IN ROOM. PT ENCOURAGED TO ELEVATE BLE. CALL LIGHT IN REACH.
[2019-08-27] VITALS: BP 156/62
--- NOTE | 2019-08-27 00:34 | NUR ---
PT MEDICATED W/VISTARIL PER REQUEST TO HELP PROMOTE SLEEP. PT STATES SHE IS COUGHING ALOT. PT TEACHING GIVEN ON NEED TO COUGH TO EXPECTORATE MUCUS OUT OF LUNGS. PT SITTING ON SIDE OF BED. CALL LIGHT IN REACH.
--- NOTE | 2019-08-27 07:10 | NUR ---
VITALS STABLE. A&O X3. PLEASANT AND COOPERATIVE. KALYN. STRONG EQUAL DAMAGE CUTTER. PO2 93% R/A. HEART SOUNDS MURMUR. HRR 90. LUNG SOUNDS DIMINISHED WITH FAINT EXPIRATORY WHEEZE IN BILAT UPPER LOBES THAT CLEARS WITH COUGH. PT STATES "MY NOSE IS ALL STUFFED UP. I FEEL LIKE IM NOT GETTING ENOUGH AIR." BOWEL SOUNDS ACTIVE X4. ABD SOFT, NONTENDER, NONDISTENDED. LEFT ARM IV SITE PATENT. SKIN PINK, WARM, DRY, AND INTACT. SKIN TURGOR NONTENTING. CAP REFILL <3 SECONDS. TRACE BILAT EDEMA TO LOWER LEGS. POSTIIVE PERIPHERAL PULSES. HERMAN DUBON SPNRCC.
--- NOTE | 2019-08-27 07:15 | NUR ---
ZYRTEC 10MG PO GIVEN PER PT REQUEST. PT STATES "MY NOSE IS REAL STUFF. CAN I GET SOMETHING FOR THAT?" WILL CONTINUE TO ASSESS. HERMAN DUBON SPNR[facility].
[2019-08-27 08:00] VITALS: BP 144/72
--- NOTE | 2019-08-27 08:12 | NUR ---
PT TAKEN TO XRAY VIA WHEELCHAIR. CONDITION STABLE. HERMAN DUBON SPNR[facility].
--- NOTE | 2019-08-27 08:25 | NUR ---
PT BACK TO ROOM FROM XRAY VIA WHEELCHAIR. PT STABLE. PLEASANT COOPERATIVE. UP IN CHAIR EATING BREAKFAST WITH TV ON. HERMAN DUBON SPNR[facility].
--- NOTE | 2019-08-27 08:30 | NUR ---
ZYRETC 10MG PO EFFECTIVE. PT STATES "I FEEL ALOT BETTER." HERMAN DUBON SP[facility].
--- NOTE | 2019-08-27 09:00 | NUR ---
case management visits with patient, she states she will return home when able and denies any home needs, case management will follow
--- NOTE | 2019-08-27 10:25 | NUR ---
FAMILY INTO SEE PT. PT SITTING UP IN RECLINER, HOLDING CONVERSATION. PLEASANT AND COOPERATIVE. HERMAN DUBON [facility].
[2019-08-27] MEDS ORDERED: CARVEDILOL6.25 MG PO (11:10)
[2019-08-27] MEDS ORDERED: ZITHROMAX250 MG PO (11:10)
[2019-08-27] MEDS ORDERED: OMNICEF300 MG PO (11:10)
[2019-08-27 12:00] VITALS: BP 151/66
--- NOTE | 2019-08-27 12:10 | NUR ---
Discharge instructions reviewed with patient/family. Patient receptive and verbalizes understanding. Follow-up care arranged. Written instructions given to patient/family. HEP LOCK REMOVED. ALL BELONGINGS WITH PT. DISCHARGED VIA WHEELCHAIR. PT STABLE. HERMAN DUBON SPCC. ETTA PARHAM
[2019-08-31 09:10] LABS: ADENOVIRUS Negative (Negative); INFLUENZA A Negative (Negative); INFLUENZA B Negative (Negative); METAPNEUMOVIRUS Negative (Negative); PARAINFLUENZA 1 Negative (Negative); PARAINFLUENZA 2 Negative (Negative); PARAINFLUENZA 3 Negative (Negative); RHINOVIRUS Negative (Negative); RSV A Negative (Negative); RSV B Negative (Negative)
== END 2019-08-27 12:10 | disposition home or self-care (01) | DRG 178 ==
LOC: ED 14:30 → 5E 16:18 → EDHOLD 16:18 → 5E 17:01
PROVIDERS: Internal Medicine; Internal Medicine Critical Care Medicine; Physician Assistant; ADMIT Internal Medicine
DX: J15.6 Pneumonia due to other Gram-negative bacteria (principal); J44.0 Chronic obstructive pulmonary disease with (acute) lower respiratory infection; E44.0 Moderate protein-calorie malnutrition; I13.0 Hypertensive heart and chronic kidney disease with heart failure and stage 1 through stage 4 chronic kidney disease, or unspecified chronic kidney disease; I50.9 Heart failure, unspecified; D64.9 Anemia, unspecified; E87.8 Other disorders of electrolyte and fluid balance, not elsewhere classified; K21.9 Gastro-esophageal reflux disease without esophagitis; R82.71 Bacteriuria; N18.3 Chronic kidney disease, stage 3 (moderate); E11.22 Type 2 diabetes mellitus with diabetic chronic kidney disease; E11.65 Type 2 diabetes mellitus with hyperglycemia; E66.01 Morbid (severe) obesity due to excess calories; I35.0 Nonrheumatic aortic (valve) stenosis; J20.9 Acute bronchitis, unspecified; G47.33 Obstructive sleep apnea (adult) (pediatric); F41.1 Generalized anxiety disorder; E78.00 Pure hypercholesterolemia, unspecified; Z96.612 Presence of left artificial shoulder joint; R91.8 Other nonspecific abnormal finding of lung field; R79.89 Other specified abnormal findings of blood chemistry; Z96.1 Presence of intraocular lens; Z68.33 Body mass index [BMI] 33.0-33.9, adult; Z79.899 Other long term (current) drug therapy; Z98.51 Tubal ligation status; Z98.49 Cataract extraction status, unspecified eye; Z87.891 Personal history of nicotine dependence; Z83.3 Family history of diabetes mellitus; Z82.49 Family history of ischemic heart disease and other diseases of the circulatory system; Z82.0 Family history of epilepsy and other diseases of the nervous system

== ENCOUNTER → 2019-09-16 | Outpatient (CLI) | payer MEDICARE ==
[~2019-09-16] MED LIST changes: +CARVEDILOL6.25 MG PO; +COREG3.125 MG PO; +K-LOR 20MEQ20 ME1 PO; +OMNICEF300 MG PO; +PEPCID20 MG PO; +PRILOSEC20 M1 PO; +VENT7GM INH; +ZITHROMAX250 MG PO
[2019-09-16 13:08] LABS: BASO % 0.4 % (0.0-1.0); EOS # 0.3 10*3/uL (0.0-0.4); EOS % 2.8 % (1.0-4.0); HEMATOCRIT 36.3 % (37.0-47.0); HEMOGLOBIN 11.2 g/dl (12.0-16.0); LYMPH # 2.4 10*3/uL (1.3-4.4); LYMPH % 22.9 % (27.0-41.0); MEAN CELL VOLUME 84.8 fl (81.0-99.0); MEAN CORPUSCULAR HGB 26.2 pg (27.0-31.0); MEAN CORPUSCULAR HGB CONC 30.9 g/dl (33.0-37.0); MONO # 0.7 10*3/uL (0.1-1.0); MONO % 6.5 % (3.0-9.0); NEUT % 66.6 % (47.0-73.0); PLATELET COUNT AUTOMATED 261 10*3/uL (130-400); RED BLOOD COUNT 4.28 10*6/uL (4.10-5.10); RED CELL DISTRI WIDTH 14.2 % (0-14.5); WHITE BLOOD COUNT 10.5 10*3/uL (4.8-10.8)
[2019-09-16 13:34] LABS: COLOR YELLOW (YELLOW)
[2019-09-16 13:35] LABS: BACTERIA 1+; BILIRUBIN NEGATIVE (NEGATIVE); BLOOD NEGATIVE (NEGATIVE); CLARITY SL CLOUDY (CLEAR); GLUCOSE NEGATIVE (NEGATIVE); KETONE NEGATIVE (NEGATIVE); LEUKO ESTERASE 2+ (NEGATIVE); MUCOUS TRACE; NITRITE NEGATIVE (NEGATIVE); PH 6.5 (5.0-9.0); SPECIFIC GRAVITY 1.015 (1.005-1.030); UROBILINOGEN 0.2 E.U./dl (0.2-1.0)
[2019-09-16 13:38] LABS: CREATININE 1.19 mg/dL (0.55-1.02); PHOSPHOROUS 3.7 mg/dL (2.5-4.9); POTASSIUM 3.9 mmol/L (3.5-5.1)
[2019-09-16 14:36] LABS: FERRITIN 23.7 ng/mL (10.0-291.0); VITAMIN D, 25-HYDROXY 30.8 ng/mL (30-100)
[2019-09-16 14:37] LABS: PTH INTACT 31.8 pg/mL (18.5-88.0)
== END | disposition home or self-care (01) ==
LOC: LAB 12:41
PROVIDERS: Internal Medicine Nephrology
DX: I12.9 Hypertensive chronic kidney disease with stage 1 through stage 4 chronic kidney disease, or unspecified chronic kidney disease (principal); N18.3 Chronic kidney disease, stage 3 (moderate); D63.1 Anemia in chronic kidney disease; J18.9 Pneumonia, unspecified organism; D64.9 Anemia, unspecified; N25.81 Secondary hyperparathyroidism of renal origin; Z96.612 Presence of left artificial shoulder joint; Z79.899 Other long term (current) drug therapy

== ENCOUNTER → 2019-12-20 | Outpatient (CLI) | payer MEDICARE | END | disposition home or self-care (01) | LOC: CT 15:00 | DX: S22.089A Unspecified fracture of T11-T12 vertebra, initial encounter for closed fracture (principal); J98.11 Atelectasis; R91.8 Other nonspecific abnormal finding of lung field; X58.XXXA Exposure to other specified factors, initial encounter; Y93.89 Activity, other specified; Y92.89 Other specified places as the place of occurrence of the external cause; Y99.8 Other external cause status ==

== ENCOUNTER → 2020-02-11 | Outpatient (CLI) | payer MEDICARE ==
[2020-02-11 10:46] LABS: BASO # 0.1 10*3/uL (0.0-0.1); BASO % 0.6 % (0.0-1.0); EOS # 0.4 10*3/uL (0.0-0.4); EOS % 4.3 % (1.0-4.0); HEMATOCRIT 36.8 % (37.0-47.0); LYMPH # 2.3 10*3/uL (1.3-4.4); LYMPH % 28.1 % (27.0-41.0); MEAN CELL VOLUME 82.1 fl (81.0-99.0); MEAN CORPUSCULAR HGB 25.4 pg (27.0-31.0); MONO # 0.7 10*3/uL (0.1-1.0); MONO % 8.4 % (3.0-9.0); NEUT # 4.7 10*3/uL (2.3-7.9); NEUT % 58.1 % (47.0-73.0); PLATELET COUNT AUTOMATED 292 10*3/uL (130-400); RED BLOOD COUNT 4.48 10*6/uL (4.10-5.10); RED CELL DISTRI WIDTH 13.8 % (0-14.5); WHITE BLOOD COUNT 8.1 10*3/uL (4.8-10.8)
[2020-02-11 10:53] LABS: BILIRUBIN NEGATIVE (NEGATIVE); BLOOD NEGATIVE (NEGATIVE); CLARITY CLEAR (CLEAR); COLOR YELLOW (YELLOW); GLUCOSE NEGATIVE (NEGATIVE); KETONE NEGATIVE (NEGATIVE); LEUKO ESTERASE 1+ (NEGATIVE); NITRITE NEGATIVE (NEGATIVE); SPECIFIC GRAVITY 1.015 (1.005-1.030); UROBILINOGEN 0.2 E.U./dl (0.2-1.0)
[2020-02-11 11:11] LABS: ALBUMIN 3.3 gm/dl (3.1-4.5); CREATININE 1.23 mg/dL (0.55-1.02); POTASSIUM 4.1 mmol/L (3.5-5.1); TOTAL PROTEIN 7.3 gm/dL (6.4-8.2)
== END | disposition home or self-care (01) ==
LOC: LAB 10:16
PROVIDERS: Nurse Practitioner Family
DX: I10 Essential (primary) hypertension (principal); G62.9 Polyneuropathy, unspecified; E11.9 Type 2 diabetes mellitus without complications; E78.2 Mixed hyperlipidemia; R79.89 Other specified abnormal findings of blood chemistry; D64.9 Anemia, unspecified; M54.5 Low back pain; G89.29 Other chronic pain; Z79.899 Other long term (current) drug therapy

== ENCOUNTER 2021-02-21 14:41 | Inpatient (IN) | payer MEDICARE ==
[~2021-02-21] VITALS: Ht 157.4 cm; Wt 89.4 kg
[2021-02-21 14:46] VITALS: BP 210/143
[2021-02-21 15:14] LABS: BASO % 0.5 % (0.0-1.0); EOS # 0.3 10*3/uL (0.0-0.4); EOS % 3.1 % (1.0-4.0); HEMATOCRIT 36.6 % (37.0-47.0); LYMPH # 2.5 10*3/uL (1.3-4.4); LYMPH % 30.8 % (27.0-41.0); MEAN CORPUSCULAR HGB 24.2 pg (27.0-31.0); MEAN CORPUSCULAR HGB CONC 30.6 g/dl (33.0-37.0); MEAN PLATELET VOLUME 8.8 fl (9.6-12.3); MONO # 0.6 10*3/uL (0.1-1.0); MONO % 7.5 % (3.0-9.0); NEUT # 4.6 10*3/uL (2.3-7.9); NEUT % 57.9 % (47.0-73.0); PLATELET COUNT AUTOMATED 305 10*3/uL (130-400); RED BLOOD COUNT 4.63 10*6/uL (4.10-5.10); RED CELL DISTRI WIDTH 14.6 % (0-14.5)
[2021-02-21 15:30] LABS: ALBUMIN 3.4 gm/dl (3.1-4.5); ALKALINE PHOSPHATASE 108 U/L (45-117); BUN 21 mg/dl (7-24); CHLORIDE 105 mmol/L (98-107); CREATININE 1.13 mg/dL (0.55-1.02); POTASSIUM 4.1 mmol/L (3.5-5.1); SGOT/AST 10 IU/L (3-35); SGPT/ALT 12 U/L (12-78); SODIUM 135 mmol/L (136-145); TOTAL PROTEIN 7.6 gm/dL (6.4-8.2)
[2021-02-21 15:32] LABS: TROPONIN I < 0.015 ng/ml (<0.045)
[2021-02-21 16:45] VITALS: BP 190/98
[2021-02-21 18:46] VITALS: BP 165/78
[2021-02-22] VITALS (7 sets, daily range): BP systolic 139–167; BP diastolic 58–90
[2021-02-22 05:01] LABS: CREATININE 1.09 mg/dL (0.55-1.02); POTASSIUM 3.6 mmol/L (3.5-5.1)
[2021-02-22 06:08] LABS: BASO # 0.1 10*3/uL (0.0-0.1); BASO % 0.6 % (0.0-1.0); EOS # 0.2 10*3/uL (0.0-0.4); EOS % 2.8 % (1.0-4.0); HEMATOCRIT 36.3 % (37.0-47.0); LYMPH # 2.2 10*3/uL (1.3-4.4); LYMPH % 27.1 % (27.0-41.0); MEAN CELL VOLUME 78.2 fl (81.0-99.0); MEAN CORPUSCULAR HGB 24.1 pg (27.0-31.0); MEAN CORPUSCULAR HGB CONC 30.9 g/dl (33.0-37.0); MEAN PLATELET VOLUME 9.4 fl (9.6-12.3); MONO # 0.7 10*3/uL (0.1-1.0); MONO % 8.3 % (3.0-9.0); NEUT # 4.8 10*3/uL (2.3-7.9); NEUT % 60.8 % (47.0-73.0); PLATELET COUNT AUTOMATED 316 10*3/uL (130-400); RED BLOOD COUNT 4.64 10*6/uL (4.10-5.10); RED CELL DISTRI WIDTH 14.6 % (0-14.5); WHITE BLOOD COUNT 7.9 10*3/uL (4.8-10.8)
[2021-02-22] MEDS ORDERED: CARVEDILOL12.5 MG PO (13:08)
[2021-02-22 15:34] LABS: BILIRUBIN Negative (Negative); BLOOD Negative (Negative); CLARITY Clear (Clear); COLOR Yellow (Yellow); GLUCOSE Negative (Negative); KETONE Trace (Negative); LEUKO ESTERASE 1+ (Negative); NITRITE Negative (Negative)
[2021-02-22 16:35] LABS: BACTERIA TRACE
[2021-02-23] VITALS: BP 128/53
[2021-02-23 05:45] LABS: CREATININE 1.29 mg/dL (0.55-1.02); POTASSIUM 3.7 mmol/L (3.5-5.1)
[2021-02-23 05:52] LABS: TROPONIN I 0.286 ng/ml (<0.045)
[2021-02-23 06:32] LABS: BASO % 0.6 % (0.0-1.0); EOS # 0.2 10*3/uL (0.0-0.4); HEMATOCRIT 35.5 % (37.0-47.0); LYMPH # 2.4 10*3/uL (1.3-4.4); LYMPH % 33.9 % (27.0-41.0); MEAN CELL VOLUME 78.9 fl (81.0-99.0); MEAN CORPUSCULAR HGB 24.4 pg (27.0-31.0); MEAN PLATELET VOLUME 9.1 fl (9.6-12.3); MONO # 0.8 10*3/uL (0.1-1.0); MONO % 10.9 % (3.0-9.0); NEUT # 3.6 10*3/uL (2.3-7.9); NEUT % 51.3 % (47.0-73.0); PLATELET COUNT AUTOMATED 295 10*3/uL (130-400); RED CELL DISTRI WIDTH 14.7 % (0-14.5)
[2021-02-23 08:00] VITALS: BP 155/68
[2021-02-23 13:30] VITALS: BP 146/64
[2021-02-23] MEDS ORDERED: AMLODIPINE BESYL5 MG PO (14:48)
[2021-02-23] MEDS ORDERED: ASPIRIN ADULT L81 M2 PO (14:48)
== END 2021-02-23 15:42 | disposition home or self-care (01) | DRG 291 ==
LOC: ED 14:41 → EDHOLD 17:01 → 4E 17:01 → EDHOLD 17:32 → 4E 02-22 12:03
PROVIDERS: Emergency Medicine; Internal Medicine; Student in an Organized Health Care Education/Training Program; ADMIT Student in an Organized Health Care Education/Training Program; ATTEND Student in an Organized Health Care Education/Training Program
PROC: 4A02XM4 Measurement of Cardiac Total Activity, External Approach (ICD-10-PCS; principal; 2021-02-23)
PROC: 3E073KZ Introduction of Other Diagnostic Substance into Coronary Artery, Percutaneous Approach (ICD-10-PCS; 2021-02-23)
DX: I13.0 Hypertensive heart and chronic kidney disease with heart failure and stage 1 through stage 4 chronic kidney disease, or unspecified chronic kidney disease (principal); I50.33 Acute on chronic diastolic (congestive) heart failure; N17.0 Acute kidney failure with tubular necrosis; I16.1 Hypertensive emergency; E87.1 Hypo-osmolality and hyponatremia; E44.0 Moderate protein-calorie malnutrition; R09.89 Other specified symptoms and signs involving the circulatory and respiratory systems; I49.3 Ventricular premature depolarization; E11.22 Type 2 diabetes mellitus with diabetic chronic kidney disease; E11.65 Type 2 diabetes mellitus with hyperglycemia; N18.31 Chronic kidney disease, stage 3a; Z96.652 Presence of left artificial knee joint; Z96.612 Presence of left artificial shoulder joint; M19.90 Unspecified osteoarthritis, unspecified site; K21.9 Gastro-esophageal reflux disease without esophagitis; E66.9 Obesity, unspecified; D50.9 Iron deficiency anemia, unspecified; E55.9 Vitamin D deficiency, unspecified; J45.909 Unspecified asthma, uncomplicated; Z68.35 Body mass index [BMI] 35.0-35.9, adult; Z88.8 Allergy status to other drugs, medicaments and biological substances; Z98.49 Cataract extraction status, unspecified eye; Z90.49 Acquired absence of other specified parts of digestive tract; Z98.51 Tubal ligation status; Z82.49 Family history of ischemic heart disease and other diseases of the circulatory system; Z81.8 Family history of other mental and behavioral disorders

== ENCOUNTER → 2021-03-07 | Outpatient (CLI) | payer MEDICARE ==
[~2021-03-07] MED LIST changes: +AMLODIPINE BESYL5 MG PO; +ASPIRIN ADULT L81 M2 PO; +CARVEDILOL12.5 MG PO
[2021-03-07 14:15] LABS: BASO # 0.1 10*3/uL (0.0-0.1); BASO % 0.7 % (0.0-1.0); EOS # 0.4 10*3/uL (0.0-0.4); EOS % 5.3 % (1.0-4.0); HEMATOCRIT 37.4 % (37.0-47.0); LYMPH # 2.1 10*3/uL (1.3-4.4); LYMPH % 25.5 % (27.0-41.0); MEAN CELL VOLUME 78.1 fl (81.0-99.0); MEAN CORPUSCULAR HGB 24.6 pg (27.0-31.0); MEAN CORPUSCULAR HGB CONC 31.6 g/dl (33.0-37.0); MEAN PLATELET VOLUME 9.2 fl (9.6-12.3); MONO # 0.6 10*3/uL (0.1-1.0); NEUT # 5.1 10*3/uL (2.3-7.9); NEUT % 61.3 % (47.0-73.0); PLATELET COUNT AUTOMATED 349 10*3/uL (130-400); RED BLOOD COUNT 4.79 10*6/uL (4.10-5.10); RED CELL DISTRI WIDTH 14.9 % (0-14.5); WHITE BLOOD COUNT 8.3 10*3/uL (4.8-10.8)
[2021-03-07 14:33] LABS: ALBUMIN 3.6 gm/dl (3.1-4.5); CREATININE 1.56 mg/dL (0.55-1.02); POTASSIUM 4.4 mmol/L (3.5-5.1)
[2021-03-07 15:24] LABS: FERRITIN 24.6 ng/mL (10.0-291.0); PTH INTACT 111.4 pg/mL (18.5-88.0); VITAMIN D, 25-HYDROXY 52.7 ng/mL (30-100)
[2021-03-07 18:08] LABS: BILIRUBIN Negative (Negative); BLOOD Negative (Negative); CLARITY Clear (Clear); COLOR Yellow (Yellow); GLUCOSE Negative (Negative); KETONE Negative (Negative); LEUKO ESTERASE 1+ (Negative); NITRITE Negative (Negative); PH 5.5 (4.5-8.0); SPECIFIC GRAVITY 1.015 (1.001-1.030); UROBILINOGEN 0.2 E.U./dl (0.0-1.0)
[2021-03-07 18:41] LABS: BACTERIA 1+; RBC 0-2 rbc/hpf (0-2); WBC 21-30 wbc/hpf (0-5)
== END | disposition home or self-care (01) ==
LOC: LAB 13:45
PROVIDERS: ATTEND Internal Medicine Nephrology
DX: N18.30 Chronic kidney disease, stage 3 unspecified (principal); D63.1 Anemia in chronic kidney disease; N25.81 Secondary hyperparathyroidism of renal origin; Z79.899 Other long term (current) drug therapy

== ENCOUNTER → 2021-04-24 | Outpatient (CLI) | payer MEDICARE | END | disposition home or self-care (01) | LOC: RAD 09:20 | PROVIDERS: ATTEND Nurse Practitioner Family | DX: R06.02 Shortness of breath (principal); R05.9 Cough, unspecified; R09.81 Nasal congestion; R53.83 Other fatigue ==

== ENCOUNTER → 2021-10-01 | Outpatient (CLI) | payer MEDICARE ==
[2021-10-01 13:59] LABS: BASO # 0.1 10*3/uL (0.0-0.1); BASO % 0.6 % (0.0-1.0); EOS # 0.4 10*3/uL (0.0-0.4); EOS % 5.2 % (1.0-4.0); HEMATOCRIT 38.1 % (37.0-47.0); LYMPH % 25.3 % (27.0-41.0); MEAN CELL VOLUME 79.2 fl (81.0-99.0); MEAN CORPUSCULAR HGB 24.9 pg (27.0-31.0); MEAN CORPUSCULAR HGB CONC 31.5 g/dl (33.0-37.0); MEAN PLATELET VOLUME 8.9 fl (9.6-12.3); MONO # 0.5 10*3/uL (0.1-1.0); MONO % 6.9 % (3.0-9.0); NEUT # 4.9 10*3/uL (2.3-7.9); NEUT % 61.6 % (47.0-73.0); PLATELET COUNT AUTOMATED 307 10*3/uL (130-400); RED BLOOD COUNT 4.81 10*6/uL (4.10-5.10); RED CELL DISTRI WIDTH 13.8 % (0-14.5); WHITE BLOOD COUNT 7.9 10*3/uL (4.8-10.8)
[2021-10-01 14:17] LABS: BILIRUBIN Negative (Negative); BLOOD Negative (Negative); CLARITY Clear (Clear); COLOR Yellow (Yellow); GLUCOSE Negative (Negative); KETONE Negative (Negative); LEUKO ESTERASE 1+ (Negative); NITRITE Negative (Negative); UROBILINOGEN 0.2 E.U./dl (0.0-1.0)
[2021-10-01 14:24] LABS: CREATININE 1.17 mg/dL (0.55-1.02); POTASSIUM 4.1 mmol/L (3.5-5.1)
[2021-10-01 14:33] LABS: MUCOUS 1+
[2021-10-01 14:34] LABS: BACTERIA 1+
[2021-10-01 15:33] LABS: VITAMIN D, 25-HYDROXY 32.9 ng/mL (30-100)
[2021-10-01 15:34] LABS: FERRITIN 10.2 ng/mL (10.0-291.0)
[2021-10-02 11:07] LABS: CREATININE,URINE 130.5 mg/dL (Not Estab.)
== END | disposition home or self-care (01) ==
LOC: LAB 13:34
PROVIDERS: ATTEND Internal Medicine Nephrology
DX: N18.32 Chronic kidney disease, stage 3b (principal); D63.1 Anemia in chronic kidney disease; N25.81 Secondary hyperparathyroidism of renal origin; Z79.899 Other long term (current) drug therapy

== ENCOUNTER → 2021-10-11 | Outpatient (CLI) | payer MEDICARE | END | disposition home or self-care (01) | LOC: RAD 11:15 | PROVIDERS: ATTEND Nurse Practitioner Family | DX: R30.0 Dysuria (principal); R11.0 Nausea; E11.9 Type 2 diabetes mellitus without complications; M54.9 Dorsalgia, unspecified; G89.29 Other chronic pain ==

== ENCOUNTER → 2022-01-21 | Outpatient (CLI) | payer MEDICARE | END | disposition home or self-care (01) | LOC: RESCLI 05:24 | PROVIDERS: ATTEND Internal Medicine | DX: I12.9 Hypertensive chronic kidney disease with stage 1 through stage 4 chronic kidney disease, or unspecified chronic kidney disease (principal); E11.22 Type 2 diabetes mellitus with diabetic chronic kidney disease; K22.719 Barrett's esophagus with dysplasia, unspecified; N18.9 Chronic kidney disease, unspecified; G47.00 Insomnia, unspecified; Z13.820 Encounter for screening for osteoporosis; R91.1 Solitary pulmonary nodule; D50.9 Iron deficiency anemia, unspecified; Z79.899 Other long term (current) drug therapy; Z87.891 Personal history of nicotine dependence; Z79.82 Long term (current) use of aspirin; Z90.49 Acquired absence of other specified parts of digestive tract ==

== ENCOUNTER → 2022-01-24 | Day surgery (SDC) | payer MEDICARE ==
[~2022-01-24] VITALS: Ht 160 cm; Wt 90.7 kg
[2022-01-24 07:06] VITALS: BP 158/45
[2022-01-24 07:48] VITALS: BP 134/58
[2022-01-24 07:59] VITALS: BP 122/48
[2022-01-24 08:18] VITALS: BP 124/55
== END | disposition home or self-care (01) ==
LOC: SDC 01-21 08:00
PROVIDERS: ATTEND Surgery
DX: R10.13 Epigastric pain (principal); K21.9 Gastro-esophageal reflux disease without esophagitis; K29.50 Unspecified chronic gastritis without bleeding; K22.70 Barrett's esophagus without dysplasia; I13.0 Hypertensive heart and chronic kidney disease with heart failure and stage 1 through stage 4 chronic kidney disease, or unspecified chronic kidney disease; E11.22 Type 2 diabetes mellitus with diabetic chronic kidney disease; E66.9 Obesity, unspecified; N18.30 Chronic kidney disease, stage 3 unspecified; I50.9 Heart failure, unspecified; J45.909 Unspecified asthma, uncomplicated; Z88.8 Allergy status to other drugs, medicaments and biological substances; Z68.30 Body mass index [BMI] 30.0-30.9, adult

== ENCOUNTER → 2022-02-04 | Outpatient (CLI) | payer MEDICARE | END | disposition home or self-care (01) | LOC: RAD 01-28 08:30 → CT 01-28 09:00 → RAD 13:30 → CT 13:30 | PROVIDERS: ATTEND Student in an Organized Health Care Education/Training Program | DX: J43.9 Emphysema, unspecified (principal); R91.8 Other nonspecific abnormal finding of lung field; M43.8X4 Other specified deforming dorsopathies, thoracic region; M81.0 Age-related osteoporosis without current pathological fracture ==

== ENCOUNTER 2022-03-27 15:09 | Emergency (ER) | payer MEDICARE ==
[~2022-03-27] VITALS: Ht 160 cm; Wt 90.7 kg
[2022-03-27 15:14] VITALS: BP 154/62
== END 2022-03-28 03:59 | disposition left against medical advice (07) ==
LOC: ED 15:09
DX: R05.9 Cough, unspecified (principal); R09.81 Nasal congestion; Z53.21 Procedure and treatment not carried out due to patient leaving prior to being seen by health care provider

== ENCOUNTER → 2022-05-29 | Outpatient (CLI) | payer MEDICARE ==
[2022-05-29 11:45] LABS: BASO # 0.1 10*3/uL (0.0-0.1); BASO % 0.6 % (0.0-1.0); EOS # 0.4 10*3/uL (0.0-0.4); EOS % 4.9 % (1.0-4.0); HEMATOCRIT 42.1 % (37.0-47.0); LYMPH # 1.8 10*3/uL (1.3-4.4); LYMPH % 23.1 % (27.0-41.0); MEAN CELL VOLUME 83.7 fl (81.0-99.0); MEAN CORPUSCULAR HGB 26.4 pg (27.0-31.0); MEAN CORPUSCULAR HGB CONC 31.6 g/dl (33.0-37.0); MONO # 0.6 10*3/uL (0.1-1.0); MONO % 7.3 % (3.0-9.0); NEUT # 5.1 10*3/uL (2.3-7.9); PLATELET COUNT AUTOMATED 306 10*3/uL (130-400); RED BLOOD COUNT 5.03 10*6/uL (4.10-5.10); RED CELL DISTRI WIDTH 13.3 % (0-14.5)
[2022-05-29 12:05] LABS: POTASSIUM 3.9 mmol/L (3.5-5.1)
[2022-05-29 12:17] LABS: CREATININE 1.26 mg/dL (0.55-1.02); TOTAL PROTEIN 7.4 gm/dL (6.4-8.2)
== END | disposition home or self-care (01) ==
LOC: LAB 11:01
PROVIDERS: ATTEND Nurse Practitioner Family
DX: E11.9 Type 2 diabetes mellitus without complications (principal); I10 Essential (primary) hypertension; E78.2 Mixed hyperlipidemia; D64.9 Anemia, unspecified; E55.9 Vitamin D deficiency, unspecified

== ENCOUNTER → 2022-06-04 | Outpatient (CLI) | payer MEDICARE ==
[2022-06-04 15:21] LABS: CREATININE 1.36 mg/dL (0.55-1.02); POTASSIUM 4.4 mmol/L (3.5-5.1)
== END | disposition home or self-care (01) ==
LOC: LAB 14:43
PROVIDERS: ATTEND Internal Medicine Cardiovascular Disease
DX: I10 Essential (primary) hypertension (principal)

== ENCOUNTER → 2022-06-11 | Outpatient (CLI) | payer MEDICARE ==
[2022-06-11 14:14] LABS: POTASSIUM 4.5 mmol/L (3.4-5.1)
[2022-06-11 14:20] LABS: CREATININE 1.27 mg/dL (0.55-1.02)
== END | disposition home or self-care (01) ==
LOC: LAB 13:46
PROVIDERS: ATTEND Internal Medicine Cardiovascular Disease
DX: I50.33 Acute on chronic diastolic (congestive) heart failure (principal); N28.9 Disorder of kidney and ureter, unspecified

== ENCOUNTER → 2022-06-18 | Outpatient (CLI) | payer MEDICARE ==
[2022-06-18 14:49] LABS: POTASSIUM 4.2 mmol/L (3.4-5.1)
[2022-06-18 14:55] LABS: CREATININE 1.46 mg/dL (0.55-1.02)
== END | disposition home or self-care (01) ==
LOC: LAB 13:48
PROVIDERS: ATTEND Internal Medicine Cardiovascular Disease
DX: N28.9 Disorder of kidney and ureter, unspecified (principal)

== ENCOUNTER → 2022-06-28 | Outpatient (CLI) | payer MEDICARE ==
[2022-06-28 12:01] LABS: BUN 19 mg/dl (9-23); CHLORIDE 106 mmol/L (98-107); CREATININE 0.99 mg/dL (0.55-1.02); POTASSIUM 4.3 mmol/L (3.4-5.1); SODIUM 136 mmol/L (136-145)
== END | disposition home or self-care (01) ==
LOC: LAB 11:30
PROVIDERS: ATTEND Internal Medicine Cardiovascular Disease
DX: I50.33 Acute on chronic diastolic (congestive) heart failure (principal); N28.9 Disorder of kidney and ureter, unspecified

== ENCOUNTER → 2022-09-12 | Outpatient (CLI) | payer MEDICARE ==
[2022-09-12 12:32] LABS: BASO # 0.1 10*3/uL (0.0-0.1); BASO % 0.6 % (0.0-1.0); EOS # 0.5 10*3/uL (0.0-0.4); EOS % 5.2 % (1.0-4.0); HEMATOCRIT 40.2 % (37.0-47.0); LYMPH # 2.2 10*3/uL (1.3-4.4); LYMPH % 25.1 % (27.0-41.0); MEAN CELL VOLUME 83.2 fl (81.0-99.0); MEAN CORPUSCULAR HGB 26.9 pg (27.0-31.0); MEAN CORPUSCULAR HGB CONC 32.3 g/dl (33.0-37.0); MEAN PLATELET VOLUME 8.6 fl (9.6-12.3); MONO # 0.6 10*3/uL (0.1-1.0); MONO % 7.1 % (3.0-9.0); NEUT # 5.5 10*3/uL (2.3-7.9); NEUT % 61.3 % (47.0-73.0); PLATELET COUNT AUTOMATED 346 10*3/uL (130-400); RED BLOOD COUNT 4.83 10*6/uL (4.10-5.10); WHITE BLOOD COUNT 8.9 10*3/uL (4.8-10.8)
[2022-09-12 12:47] LABS: POTASSIUM 4.5 mmol/L (3.4-5.1); TOTAL PROTEIN 7.3 gm/dL (6.0-8.0)
== END | disposition home or self-care (01) ==
LOC: CARD 09-02 09:30 → LAB 11:24 → CARD 14:00
PROVIDERS: Nurse Practitioner Family; ATTEND Internal Medicine Cardiovascular Disease
DX: I35.0 Nonrheumatic aortic (valve) stenosis (principal); I11.9 Hypertensive heart disease without heart failure; K21.00 Gastro-esophageal reflux disease with esophagitis, without bleeding; E11.9 Type 2 diabetes mellitus without complications; R79.89 Other specified abnormal findings of blood chemistry

== ENCOUNTER → 2022-11-28 | Outpatient (CLI) | payer MEDICARE ==
[2022-11-28 11:22] LABS: BASO % 0.5 % (0.0-1.0); EOS # 0.3 10*3/uL (0.0-0.4); LYMPH # 1.9 10*3/uL (1.3-4.4); LYMPH % 24.2 % (27.0-41.0); MEAN CELL VOLUME 85.4 fl (81.0-99.0); MEAN CORPUSCULAR HGB CONC 31.7 g/dl (33.0-37.0); MEAN PLATELET VOLUME 8.9 fl (9.6-12.3); MONO # 0.6 10*3/uL (0.1-1.0); MONO % 8.1 % (3.0-9.0); NEUT # 4.9 10*3/uL (2.3-7.9); NEUT % 62.7 % (47.0-73.0); PLATELET COUNT AUTOMATED 283 10*3/uL (130-400); RED BLOOD COUNT 4.92 10*6/uL (4.10-5.10); RED CELL DISTRI WIDTH 13.6 % (0-14.5); WHITE BLOOD COUNT 7.8 10*3/uL (4.8-10.8)
[2022-11-28 11:29] LABS: BILIRUBIN Negative (Negative); BLOOD Negative (Negative); CLARITY Clear (Clear); COLOR Yellow (Yellow); GLUCOSE Negative (Negative); KETONE Trace (Negative); LEUKO ESTERASE 2+ (Negative); NITRITE Negative (Negative); PH 5.5 (4.5-8.0); UROBILINOGEN 0.2 E.U./dl (0.0-1.0)
[2022-11-28 11:37] LABS: URINE CREATININE RANDOM 167.57 mg/dL
[2022-11-28 11:40] LABS: BACTERIA TRACE; MUCOUS TRACE; WBC 16-20 wbc/hpf (0-5)
[2022-11-28 12:20] LABS: POTASSIUM 3.8 mmol/L (3.4-5.1)
[2022-11-28 12:22] LABS: VITAMIN D, 25-HYDROXY 50.6 ng/mL (30-100)
[2022-11-29 02:07] LABS: TOTAL PROTEIN, SERUM 7.2 g/dL (6.0-8.5)
[2022-11-29 15:07] LABS: A/G RATIO 1.1 (0.7-1.7); ALBUMIN 3.7 g/dL (2.9-4.4); ALPHA-1-GLOBULIN 0.2 g/dL (0.0-0.4); ALPHA-2-GLOBULIN 0.7 g/dL (0.4-1.0); BETA GLOBULIN 1.1 g/dL (0.7-1.3); FREE KAPPA LIGHT CHAINS 49.5 mg/L (3.3-19.4); FREE LAMBDA LIGHT CHAINS 28.1 mg/L (5.7-26.3); GAMMA GLOBULIN 1.5 g/dL (0.4-1.8); GLOBULIN, TOTAL 3.5 g/dL (2.2-3.9); KAPPA/LAMBDA RATIO 1.76 (0.26-1.65); M-SPIKE Not Observed g/dL (Not Observed)
== END | disposition home or self-care (01) ==
LOC: LAB 10:40
PROVIDERS: Internal Medicine Cardiovascular Disease; ATTEND Internal Medicine Nephrology
DX: N18.32 Chronic kidney disease, stage 3b (principal); D63.1 Anemia in chronic kidney disease; I51.7 Cardiomegaly; N25.81 Secondary hyperparathyroidism of renal origin; Z79.899 Other long term (current) drug therapy

== ENCOUNTER → 2023-02-06 | Outpatient (CLI) | payer MEDICARE ==
[2023-02-06 11:27] LABS: BASO % 0.6 % (0.0-1.0); EOS # 0.3 10*3/uL (0.0-0.4); EOS % 4.4 % (1.0-4.0); HEMATOCRIT 38.6 % (37.0-47.0); LYMPH # 1.9 10*3/uL (1.3-4.4); LYMPH % 28.2 % (27.0-41.0); MEAN CELL VOLUME 84.5 fl (81.0-99.0); MEAN CORPUSCULAR HGB CONC 33.2 g/dl (33.0-37.0); MEAN PLATELET VOLUME 8.8 fl (9.6-12.3); MONO # 0.6 10*3/uL (0.1-1.0); MONO % 8.1 % (3.0-9.0); NEUT % 58.3 % (47.0-73.0); PLATELET COUNT AUTOMATED 276 10*3/uL (130-400); RED BLOOD COUNT 4.57 10*6/uL (4.10-5.10); RED CELL DISTRI WIDTH 12.8 % (0-14.5); WHITE BLOOD COUNT 6.8 10*3/uL (4.8-10.8)
== END | disposition home or self-care (01) ==
LOC: LAB 10:37
PROVIDERS: ATTEND Nurse Practitioner Family
DX: I10 Essential (primary) hypertension (principal); E11.9 Type 2 diabetes mellitus without complications; R79.89 Other specified abnormal findings of blood chemistry

== ENCOUNTER 2023-06-04 14:57 | Emergency (ER) | payer MEDICARE ==
[~2023-06-04] VITALS: Ht 162.5 cm; Wt 89.4 kg
[2023-06-04 15:03] VITALS: BP 156/81
[2023-06-04 15:55] LABS: BASO % 0.2 % (0.0-1.0); HEMATOCRIT 34.6 % (37.0-47.0); LYMPH # 1.3 10*3/uL (1.3-4.4); LYMPH % 11.3 % (27.0-41.0); MEAN CELL VOLUME 82.4 fl (81.0-99.0); MEAN CORPUSCULAR HGB 27.6 pg (27.0-31.0); MEAN CORPUSCULAR HGB CONC 33.5 g/dl (33.0-37.0); MEAN PLATELET VOLUME 8.6 fl (9.6-12.3); MONO # 0.5 10*3/uL (0.1-1.0); MONO % 4.3 % (3.0-9.0); NEUT # 9.9 10*3/uL (2.3-7.9); NEUT % 83.7 % (47.0-73.0); PLATELET COUNT AUTOMATED 324 10*3/uL (130-400); RED CELL DISTRI WIDTH 12.6 % (0-14.5); WHITE BLOOD COUNT 11.8 10*3/uL (4.8-10.8)
[2023-06-04 16:06] LABS: ACT PARTIAL THROMBO TIME 38.6 SECONDS (20.0-32.1)
[2023-06-04 16:19] LABS: POTASSIUM 4.1 mmol/L (3.4-5.1)
[2023-06-04] MEDS ORDERED: Ipratropium Brom3 ML INH (17:54)
[2023-06-04] MEDS ORDERED: MUCINEX1200 M1 PO (17:54)
[2023-06-04] MEDS ORDERED: LASIX40 MG PO (17:54)
[2023-06-04] MEDS ORDERED: POTASSIUM CHLO20 ME4 PO (17:55)
== END 2023-06-04 18:35 | disposition home or self-care (01) ==
LOC: ED 14:57
PROVIDERS: Family Medicine
DX: J44.1 Chronic obstructive pulmonary disease with (acute) exacerbation (principal); I11.0 Hypertensive heart disease with heart failure; I50.9 Heart failure, unspecified; K21.9 Gastro-esophageal reflux disease without esophagitis; Z88.8 Allergy status to other drugs, medicaments and biological substances; Z90.49 Acquired absence of other specified parts of digestive tract; Z98.51 Tubal ligation status; Z96.652 Presence of left artificial knee joint; Z98.890 Other specified postprocedural states; F17.290 Nicotine dependence, other tobacco product, uncomplicated; Z20.822 Contact with and (suspected) exposure to COVID-19

== ENCOUNTER → 2023-07-08 | Outpatient (CLI) | payer MEDICARE ==
[~2023-07-08] MED LIST changes: +Ipratropium Brom3 ML INH; +MUCINEX1200 M1 PO; +POTASSIUM CHLO20 ME4 PO
[2023-07-08 16:30] LABS: BASO # 0.1 10*3/uL (0.0-0.1); BASO % 0.6 % (0.0-1.0); EOS # 0.4 10*3/uL (0.0-0.4); HEMATOCRIT 39.1 % (37.0-47.0); LYMPH # 2.3 10*3/uL (1.3-4.4); LYMPH % 26.3 % (27.0-41.0); MEAN CELL VOLUME 86.1 fl (81.0-99.0); MEAN CORPUSCULAR HGB 27.5 pg (27.0-31.0); MEAN PLATELET VOLUME 8.7 fl (9.6-12.3); MONO # 0.6 10*3/uL (0.1-1.0); MONO % 7.4 % (3.0-9.0); NEUT # 5.3 10*3/uL (2.3-7.9); NEUT % 61.1 % (47.0-73.0); PLATELET COUNT AUTOMATED 301 10*3/uL (130-400); RED BLOOD COUNT 4.54 10*6/uL (4.10-5.10); RED CELL DISTRI WIDTH 13.2 % (0-14.5); WHITE BLOOD COUNT 8.7 10*3/uL (4.8-10.8)
[2023-07-08 16:57] LABS: POTASSIUM 4.4 mmol/L (3.4-5.1)
[2023-07-08 17:00] LABS: VITAMIN D, 25-HYDROXY 48.3 ng/mL (30-100)
== END | disposition home or self-care (01) ==
LOC: LAB 15:57
PROVIDERS: ATTEND Internal Medicine Nephrology
DX: N18.32 Chronic kidney disease, stage 3b (principal); D63.1 Anemia in chronic kidney disease; N25.81 Secondary hyperparathyroidism of renal origin; J40 Bronchitis, not specified as acute or chronic

== ENCOUNTER → 2023-07-09 | Outpatient (CLI) | payer MEDICARE ==
[2023-07-09 13:55] LABS: BILIRUBIN Negative (Negative); BLOOD Negative (Negative); CLARITY Clear (Clear); COLOR Yellow (Yellow); GLUCOSE Negative (Negative); KETONE Negative (Negative); LEUKO ESTERASE Trace (Negative); NITRITE Negative (Negative); PH 5.5 (4.5-8.0); SPECIFIC GRAVITY 1.015 (1.001-1.030); UROBILINOGEN 0.2 E.U./dl (0.0-1.0)
[2023-07-09 13:57] LABS: URINE CREATININE RANDOM 55.54 mg/dL
[2023-07-09 14:15] LABS: BACTERIA 1+; MUCOUS TRACE; RBC 0-2 rbc/hpf (0-2)
== END | disposition home or self-care (01) ==
LOC: LAB 12:42
PROVIDERS: ATTEND Internal Medicine Nephrology
DX: N18.32 Chronic kidney disease, stage 3b (principal); D63.1 Anemia in chronic kidney disease; N25.81 Secondary hyperparathyroidism of renal origin; Z79.899 Other long term (current) drug therapy

== ENCOUNTER → 2024-01-13 | Outpatient (CLI) | payer MEDICARE | LOC: RAD 10:53 | PROVIDERS: ATTEND Nurse Practitioner Primary Care | DX: R10.84 Generalized abdominal pain (principal); Z90.49 Acquired absence of other specified parts of digestive tract ==

== ENCOUNTER → 2024-01-27 | Outpatient (CLI) | payer MEDICARE | END | disposition home or self-care (01) | LOC: RESCLI 00:21 | PROVIDERS: ATTEND Student in an Organized Health Care Education/Training Program | DX: I13.0 Hypertensive heart and chronic kidney disease with heart failure and stage 1 through stage 4 chronic kidney disease, or unspecified chronic kidney disease (principal); E11.22 Type 2 diabetes mellitus with diabetic chronic kidney disease; I50.30 Unspecified diastolic (congestive) heart failure; N18.9 Chronic kidney disease, unspecified; R10.84 Generalized abdominal pain; G62.9 Polyneuropathy, unspecified; J30.2 Other seasonal allergic rhinitis; H81.10 Benign paroxysmal vertigo, unspecified ear; K21.9 Gastro-esophageal reflux disease without esophagitis; E55.9 Vitamin D deficiency, unspecified; J45.31 Mild persistent asthma with (acute) exacerbation; Z79.899 Other long term (current) drug therapy; Z98.890 Other specified postprocedural states; Z88.8 Allergy status to other drugs, medicaments and biological substances ==

== ENCOUNTER → 2024-02-10 | Outpatient (CLI) | payer MEDICARE ==
[2024-02-10 14:36] LABS: BASO # 0.1 10*3/uL (0.0-0.1); BASO % 0.7 % (0.0-1.0); EOS # 0.3 10*3/uL (0.0-0.4); EOS % 3.4 % (1.0-4.0); HEMATOCRIT 37.7 % (37.0-47.0); LYMPH % 22.3 % (27.0-41.0); MEAN CELL VOLUME 84.9 fl (81.0-99.0); MEAN CORPUSCULAR HGB 27.9 pg (27.0-31.0); MEAN CORPUSCULAR HGB CONC 32.9 g/dl (33.0-37.0); MEAN PLATELET VOLUME 8.3 fl (9.6-12.3); MONO # 0.7 10*3/uL (0.1-1.0); MONO % 7.6 % (3.0-9.0); NEUT # 5.9 10*3/uL (2.3-7.9); NEUT % 65.3 % (47.0-73.0); PLATELET COUNT AUTOMATED 344 10*3/uL (130-400); RED BLOOD COUNT 4.44 10*6/uL (4.10-5.10); RED CELL DISTRI WIDTH 13.4 % (0-14.5)
[2024-02-10 14:36] LABS: BILIRUBIN Negative (Negative); BLOOD Trace-Lysed (Negative); CLARITY Cloudy (Clear); COLOR Yellow (Yellow); GLUCOSE Negative (Negative); KETONE Negative (Negative); LEUKO ESTERASE 3+ (Negative); NITRITE Positive (Negative); UROBILINOGEN 0.2 E.U./dl (0.0-1.0)
[2024-02-10 14:43] LABS: URINE CREATININE RANDOM 62.32 mg/dL
[2024-02-10 14:59] LABS: BACTERIA 2+; EPITHELIAL CELLS 0-2; WBC TNTC wbc/hpf (0-5)
[2024-02-10 15:15] LABS: BUN 16 mg/dl (9-23); CHLORIDE 99 mmol/L (98-107); POTASSIUM 4.2 mmol/L (3.4-5.1)
[2024-02-10 15:18] LABS: VITAMIN D, 25-HYDROXY 58.1 ng/mL (30-100)
== END | disposition home or self-care (01) ==
LOC: LAB 14:05
PROVIDERS: ATTEND Internal Medicine Nephrology
DX: N18.31 Chronic kidney disease, stage 3a (principal); N25.81 Secondary hyperparathyroidism of renal origin; D63.1 Anemia in chronic kidney disease

== ENCOUNTER → 2024-03-04 | Outpatient (CLI) | payer MEDICARE ==
[2024-03-04 10:41] LABS: BASO # 0.1 10*3/uL (0.0-0.1); BASO % 0.7 % (0.0-1.0); EOS # 0.4 10*3/uL (0.0-0.4); EOS % 4.6 % (1.0-4.0); HEMATOCRIT 40.4 % (37.0-47.0); LYMPH # 1.8 10*3/uL (1.3-4.4); LYMPH % 20.9 % (27.0-41.0); MEAN CORPUSCULAR HGB 27.2 pg (27.0-31.0); MEAN CORPUSCULAR HGB CONC 31.7 g/dl (33.0-37.0); MEAN PLATELET VOLUME 8.3 fl (9.6-12.3); MONO # 0.7 10*3/uL (0.1-1.0); MONO % 7.7 % (3.0-9.0); NEUT # 5.6 10*3/uL (2.3-7.9); NEUT % 65.6 % (47.0-73.0); PLATELET COUNT AUTOMATED 289 10*3/uL (130-400); RED CELL DISTRI WIDTH 13.4 % (0-14.5); WHITE BLOOD COUNT 8.5 10*3/uL (4.8-10.8)
[2024-03-04 11:32] LABS: POTASSIUM 4.4 mmol/L (3.4-5.1); TOTAL PROTEIN 7.3 gm/dL (6.0-8.0)
== END | disposition home or self-care (01) ==
LOC: LAB 10:24
PROVIDERS: ATTEND Nurse Practitioner Primary Care
DX: I10 Essential (primary) hypertension (principal); E78.2 Mixed hyperlipidemia; R73.03 Prediabetes; E55.9 Vitamin D deficiency, unspecified

== ENCOUNTER → 2024-06-02 | Outpatient (CLI) | payer MEDICARE ==
[2024-06-02 10:38] LABS: BASO % 0.3 % (0.0-1.0); EOS # 0.3 10*3/uL (0.0-0.4); EOS % 3.3 % (1.0-4.0); HEMATOCRIT 38.6 % (37.0-47.0); MEAN CELL VOLUME 83.4 fl (81.0-99.0); MEAN CORPUSCULAR HGB 27.4 pg (27.0-31.0); MEAN CORPUSCULAR HGB CONC 32.9 g/dl (33.0-37.0); MONO # 0.6 10*3/uL (0.1-1.0); MONO % 6.6 % (3.0-9.0); NEUT # 6.9 10*3/uL (2.3-7.9); NEUT % 71.1 % (47.0-73.0); PLATELET COUNT AUTOMATED 239 10*3/uL (130-400); RED BLOOD COUNT 4.63 10*6/uL (4.10-5.10); RED CELL DISTRI WIDTH 13.7 % (0-14.5); WHITE BLOOD COUNT 9.6 10*3/uL (4.8-10.8)
[2024-06-02 11:23] LABS: ALKALINE PHOSPHATASE 73 U/L (46-116); BUN 20 mg/dl (9-23); CHLORIDE 102 mmol/L (98-107); CHOLESTEROL 165 mg/dL (<200); LDL CHOLESTEROL 98 mg/dL (9-159); POTASSIUM 4.6 mmol/L (3.4-5.1); SGPT/ALT < 7 U/L (5-49); TOTAL PROTEIN 7.1 gm/dL (6.0-8.0); TRIGLYCERIDES 125 mg/dl (<150)
== END | disposition home or self-care (01) ==
LOC: LAB 10:11
PROVIDERS: ATTEND Nurse Practitioner Primary Care
DX: I10 Essential (primary) hypertension (principal); E78.2 Mixed hyperlipidemia; E55.9 Vitamin D deficiency, unspecified; R73.03 Prediabetes

== ENCOUNTER → 2024-09-28 | Outpatient (CLI) | payer MEDICARE | END | disposition home or self-care (01) | LOC: CARD 01:52 | PROVIDERS: ATTEND Internal Medicine Cardiovascular Disease | DX: I35.8 Other nonrheumatic aortic valve disorders (principal); I48.0 Paroxysmal atrial fibrillation; R06.02 Shortness of breath; I50.32 Chronic diastolic (congestive) heart failure ==

== ENCOUNTER → 2024-10-13 | Outpatient (CLI) | payer MEDICARE ==
[2024-10-13 11:54] LABS: BASO # 0.1 10*3/uL (0.0-0.1); EOS # 0.4 10*3/uL (0.0-0.4); EOS % 5.1 % (1.0-4.0); HEMATOCRIT 39.5 % (37.0-47.0); MEAN CELL VOLUME 83.9 fl (81.0-99.0); MEAN CORPUSCULAR HGB 27.4 pg (27.0-31.0); MEAN CORPUSCULAR HGB CONC 32.7 g/dl (33.0-37.0); MEAN PLATELET VOLUME 8.8 fl (9.6-12.3); MONO # 0.6 10*3/uL (0.1-1.0); MONO % 7.7 % (3.0-9.0); NEUT # 5.2 10*3/uL (2.3-7.9); NEUT % 62.9 % (47.0-73.0); PLATELET COUNT AUTOMATED 287 10*3/uL (130-400); RED BLOOD COUNT 4.71 10*6/uL (4.10-5.10); RED CELL DISTRI WIDTH 13.2 % (0-14.5); WHITE BLOOD COUNT 8.3 10*3/uL (4.8-10.8)
[2024-10-13 12:06] LABS: BILIRUBIN Negative (Negative); BLOOD Negative (Negative); CLARITY Cloudy (Clear); COLOR Yellow (Yellow); GLUCOSE Negative (Negative); KETONE Negative (Negative); LEUKO ESTERASE 3+ (Negative); NITRITE Positive (Negative); UROBILINOGEN 0.2 E.U./dl (0.0-1.0)
[2024-10-13 12:17] LABS: POTASSIUM 3.9 mmol/L (3.4-5.1)
[2024-10-13 12:22] LABS: VITAMIN D, 25-HYDROXY 75.4 ng/mL (30-100)
[2024-10-13 12:58] LABS: BACTERIA 4+; WBC 51-100 wbc/hpf (0-5)
== END | disposition home or self-care (01) ==
LOC: LAB 11:23
PROVIDERS: ATTEND Internal Medicine Nephrology
DX: N25.81 Secondary hyperparathyroidism of renal origin (principal); N18.30 Chronic kidney disease, stage 3 unspecified; D63.1 Anemia in chronic kidney disease

== ENCOUNTER → 2025-04-13 | Outpatient (CLI) | payer MEDICARE ==
[2025-04-13 11:31] LABS: BASO # 0.1 10*3/uL (0.0-0.1); BASO % 0.8 % (0.0-1.0); EOS # 0.6 10*3/uL (0.0-0.4); EOS % 7.5 % (1.0-4.0); MEAN CELL VOLUME 84.7 fl (81.0-99.0); MEAN CORPUSCULAR HGB 27.8 pg (27.0-31.0); MEAN PLATELET VOLUME 8.8 fl (9.6-12.3); MONO # 0.6 10*3/uL (0.1-1.0); MONO % 7.7 % (3.0-9.0); NEUT # 4.4 10*3/uL (2.3-7.9); NEUT % 57.0 % (47.0-73.0); NUCLEATED RED BLOOD CELL 0.0 % (0.0-0.0); NUCLEATED RED BLOOD CELL 0.0 10*3/uL (0.0-0.0); PLATELET COUNT AUTOMATED 273 10*3/uL (130-400); RED CELL DISTRI WIDTH 12.6 % (0-14.5)
[2025-04-13 11:46] LABS: BILIRUBIN Negative (Negative); BLOOD Negative (Negative); CLARITY Clear (Clear); COLOR Yellow (Yellow); KETONE Negative (Negative); LEUKO ESTERASE Trace (Negative); NITRITE Negative (Negative); PH 6.0 (4.5-8.0); SPECIFIC GRAVITY 1.010 (1.001-1.030); UROBILINOGEN 0.2 E.U./dl (0.0-1.0)
[2025-04-13 11:58] LABS: BUN 22.0 mg/dl (9-23)
[2025-04-13 12:16] LABS: VITAMIN D, 25-HYDROXY 58.4 ng/mL (30-100)
== END | disposition home or self-care (01) ==
LOC: LAB 10:48
PROVIDERS: ATTEND Internal Medicine Nephrology
DX: N18.30 Chronic kidney disease, stage 3 unspecified (principal); D63.1 Anemia in chronic kidney disease; N25.81 Secondary hyperparathyroidism of renal origin